=== PATIENT | female | born 1950 | race Caucasian/White ===

== ENCOUNTER 2022-03-09 14:32 | Outpatient (REF) | payer OTHER, SELFPAY ==
--- NOTE | ~2022-03-09 | MR_ITS ---
EXAMINATION: MR KNEE WITHOUT AND WITH CONTRAST, LEFT CLINICAL INFORMATION: Left knee pain, swelling, Smiley's cyst previously aspirated with purulent drainage. COMPARISON: Radiographs and MRI 12/01/2021. Ultrasound 11/15/2021. TECHNIQUE: MRI of the knee was performed before and after the intravenous administration of 8 mL Gadavist on a high-field scanner. FINDINGS: MENISCI: Medial meniscus: Undersurface tearing of the posterior horn extending to the junction with the meniscal body, similar to the previous study. Lateral meniscus: Ill-defined inner margin tearing of the meniscal body and inner margin truncation extending along the posterior horn also appear similar. LIGAMENTS: Cruciate: Intact. Surrounding enhancement/synovitis, similar to previous. Collateral: Intact. EXTENSOR MECHANISM: Intact. ARTICULAR CARTILAGE/BONE: Patellofemoral Compartment: Focal cartilage irregularity of the medial patellar facet. Medial Compartment: Peripheral cartilage thinning and mild subchondral marrow edema. Marrow edema of the tibia posteriorly has significantly decreased. Lateral Compartment: Cartilage thinning and areas of surface irregularity with a subchondral cyst of the tibia. Marrow edema at the junction of the tibial plateau and lateral tibial spine has decreased. JOINT FLUID AND BURSAE: Moderate joint effusion with enhancing synovitis and a large, complex Smiley's cyst with only peripheral enhancement overall measuring 5.1 x 3.5 x 6.6 cm has slightly increased in size. Complex fluid extending along the popliteus tendon sheath is no longer present. There is a new area of complex, loculated fluid/debris along the central trochlea, up to 8 mm in thickness. MR/MR knee LT wo/w con IMPRESSION: Large complex, peripherally enhancing Smiley's cyst collection has slightly increased in size and there is a new complex collection of fluid/debris extending along the central trochlea. Complex fluid previously demonstrated along the popliteus tendon sheath is no longer present. Patchy areas of reactive marrow edema involving the medial and lateral tibia have significantly decreased. Undersurface tearing of the medial meniscus posterior horn extending to the junction with the meniscal body, and horizontal tearing of the lateral meniscus body with inner margin truncation and tearing of the posterior horn appear similar to the previous study.
== END 2022-03-09 14:33 | disposition home or self-care (01) ==
LOC: HO.MRI 14:32
PROVIDERS: Visit Provider Physician Assistant
DX: Z87.39 Personal history of other diseases of the musculoskeletal system and connective tissue (principal)
CPT/HCPCS: 73723; A9585

== ENCOUNTER 2022-04-25 12:33 | Outpatient (REF) | payer OTHER, SELFPAY ==
--- NOTE | ~2022-04-25 | US_ITS ---
EXAMINATION: ULTRASOUND-GUIDED CYST ASPIRATION, KNEE, LEFT CLINICAL INFORMATION: Large left Smiley's cyst. COMPARISON: MR knee 03/09/2022. TECHNIQUE: Following explaining ultrasound-guided left Smiley's cyst drainage procedure, benefits and risks, a written consent was obtained. Patient was placed prone on ultrasound stretcher and preliminary ultrasound imaging was obtained. An optimal site was selected along the skin and marked on the skin. The site was cleaned and draped in usual sterile manner with 2% chlorhexidine solution. 1% lidocaine was injected at puncture site. Through a small skin incision a 4 Japanese catheter and a 5 Japanese Yueh catheter and an 18-gauge and 16-gauge regular needles were inserted several times into the Smiley's cyst however no fluid could be obtained due to it's gelatinous constitution. The exam was terminated. No fluid was collected. Sterile Band-Aid was applied at the puncture site. FINDINGS: On preliminary ultrasound imaging there is a well capsulated echogenic area in the popliteal fossa suggestive of a Smiley's cyst. Unsuccessful attempt to obtain any fluid from the Smiley's cyst in spite of several attempts with different needles and catheters. This is because of the thick gelatinous fluid. Open incision and enucleation may be required. US/US guided fine needle asp IMPRESSION: Unsuccessful attempt on ultrasound-guided drainage of Smiley's cyst. Recommend surgical correlation.
[2022-04-25] MEDS: Lidocaine HCl 1 % 20 ML VIAL SUBCUT (14:04)
== END 2022-04-25 12:34 | disposition home or self-care (01) ==
LOC: HO.US 12:33
PROVIDERS: Visit Provider Physician Assistant
DX: M71.22 Synovial cyst of popliteal space [Baker], left knee (principal)
CPT/HCPCS: 10005

== ENCOUNTER 2024-04-22 11:49 | Outpatient (AMB) | payer OTHER, SELFPAY ==
[2024-04-22 11:52] VITALS: BP 120/70; PULSE 71; O2SAT 92; BMI 33.0
--- NOTE | 2024-04-22 11:52 | HO.NEPHOV ---
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 Recent serum creatinine was 1.44 mg/dL. Few months ago creatinine was 1.33. Back in 2021 serum creatinine was 1.21. She has borderline diabetes mellitus. She was initially on metformin and she discontinue this medication. At present she is not on any antihypertensive medications and blood sugar has been within the normal range. History of hypertension overall blood pressure has been well controlled. She is on losartan 50 mg and spironolactone 50 mg. She has been on these medications for last few years and has been no change in the dosage recently. She does not take any NSAIDs or other nephrotoxic agents. Her oral intake has been adequate. History of nephrolithiasis. She has undergone lithotripsy and stent placement. She still has multiple renal stones. [facility] Medical History (Updated 04/22/24 @ 12:16 by Paul Alston MD) DONNA (obstructive sleep apnea) History of cervical cancer Primary osteoarthritis involving multiple joints Hirsutism Glaucoma Obesity Osteoporosis Microalbuminuria CKD (chronic kidney disease), stage III Diabetes Rheumatoid arthritis Hypertension Surgical History H/O lithotripsy H/O: hysterectomy S/P left knee arthroscopy Social History Current occupational status: retired Review of Systems Const Denies fever(s) and Denies weight loss Card Denies chest pain Resp Denies cough and Denies hemoptysis GI Denies abdominal pain, Denies diarrhea and Denies nausea Musc Denies back pain Neuro Denies focal weakness Physical Exam Vital Signs: Last Vital Signs Pulse 71 04/22/24 11:52 BP 120/70 04/22/24 11:52 Pulse Ox 92 04/22/24 11:52 Oxygen Delivery Method Room Air 04/22/24 11:52 BMI result Body Mass Index 33.0 Const General: comfortable; No acute distress Orientation/consciousness: patient oriented x3 Eyes General: appearance normal, both eyes and all related structures Visual Veloz: normal visual veloz by confrontation Neck Neck: Yes supple and Yes no JVD Resp Effort & Inspection: normal respiratory effort and respiratory effort not decreased Auscultation: rhonchi Cardio Palpation: no palpable S3 and no palpable S4 Heart sounds: no rubs GI Inspection: Yes normal to inspection Palpation (GI): Soft to palpation Percussion: Yes normal to percussion Auscultation: normal bowel sounds General: Yes no CVA tenderness Back/Spine/Pelvis Back: no CVA tenderness Skin General skin exam: no petechiae and no purpura Neuro General: patient oriented x3 and no focal motor deficits Extrem General: No clubbing and No edema Results Reviewed Results Reviewed: 02/22/2024 Serum creatinine 1.44 No significant proteinuria based on recent urine protein creatinine ratio Nephrology Results: No Data to Display Assessment & Plan Assessment & Plan (1) CKD (chronic kidney disease), stage III: Code(s): N18.30 - Chronic kidney disease, stage 3 unspecified Category: Medical (2) Bilateral nephrolithiasis: Code(s): N20.0 - Calculus of kidney Category: Medical Plan 73-year-old woman with stage IIIB chronic kidney disease. CKD 3 most likely due to underlying hypertensive nephrosclerosis. Other possibilities would include chronic nephrolithiasis.. Obstructive uropathy should be ruled out. Even though she has had mild diabetes mellitus for the last few years I do not think she has underlying diabetic nephropathy. She has no significant proteinuria. No reason to believe she has any active glomerular nephritis or interstitial disease at this time. Recommendation Renal ultrasonogram. Optimize blood pressure and maintain blood pressure less than 130/80. Avoid hypotension. Continue overt nephrotoxic agents including NSAIDs. Encouraged to increase p.o. fluid intake to maintain urine output of at least 2 L. Further workup will be based on the outcome of the baseline investigations as outlined Orders: Orders Parathyroid Hormone Intact Today N18.30 - Chronic kidney disease, stage 3 unspecified, N20.0 - Calculus of kidney US renal BI Today N18.30 - Chronic kidney disease, stage 3 unspecified, N20.0 - Calculus of kidney Basic Metabolic Panel Today N18.30 - Chronic kidney disease, stage 3 unspecified, N20.0 - Calculus of kidney Complete Blood Count Auto Diff Today N18.30 - Chronic kidney disease, stage 3 unspecified, N20.0 - Calculus of kidney Phosphorus Today N18.30 - Chronic kidney disease, stage 3 unspecified, N20.0 - Calculus of kidney Uric Acid Today N18.30 - Chronic kidney disease, stage 3 unspecified, N20.0 - Calculus of kidney Vitamin D 25-OH (D2 and D3) Today N18.30 - Chronic kidney disease, stage 3 unspecified, N20.0 - Calculus of kidney Coding Level of Care Code New Pt Level 4 (42670) Diagnoses CKD (chronic kidney disease), stage III N18.30 Bilateral nephrolithiasis N20.0
== END 2024-04-22 12:29 | disposition home or self-care (01) ==
PROVIDERS: PCP Family Medicine; Referring Provider Family Medicine; Visit Provider Internal Medicine Hypertension Specialist
DX: N18.30 Chronic kidney disease, stage 3 unspecified (principal); N20.0 Calculus of kidney
CPT/HCPCS: 99204

== ENCOUNTER → 2024-04-22 11:49 | Outpatient (BNVA) | payer OTHER, SELFPAY | PROVIDERS: PCP Family Medicine; Referring Provider Family Medicine; Visit Provider Internal Medicine Hypertension Specialist ==

== ENCOUNTER 2024-04-22 12:18 | Outpatient (REF) | payer OTHER, SELFPAY ==
[2024-04-22 17:40] LABS: MANUAL DIFF FLAG NO
[2024-04-22 17:47] LABS: Basophils Percent Auto 0.6 % (0-2); Eosinophils Absolute Auto 0.1 X10*3/uL (0.0-0.4); Eosinophils Percent Auto 1.3 % (0-4); Hematocrit 38.7 % (37.0-47.0); Hemoglobin 12.8 g/dl (12.0-16.0); Imm Gran Abs Auto 0.02 X10*3/uL (0.00-0.03); Imm Gran Pct Auto 0.4 % (0.0-0.4); Lymphocytes Absolute Auto 1.5 X10*3/uL (1.2-4.9); Lymphocytes Percent Auto 28.8 % (20-40); Mean Corpuscular HGB Conc 33.1 g/dl (31.0-35.0); Mean Corpuscular Hemoglobin 30.6 pg (27.0-33.0); Mean Corpuscular Volume 92.6 fL (80.0-98.0); Mean Platelet Volume 10.3 fL (9.4-12.3); Monocytes Absolute Auto 0.5 X10*3/uL (0.1-1.2); Monocytes Percent Auto 8.8 % (2-11); Neutrophils Absolute Auto 3.2 x10*3/uL (2.0-8.3); Neutrophils Percent Auto 60.1 % (45-73); Platelet Count 260 X10*3/uL (160-400); Red Blood Count 4.18 X10*6/uL (4.20-5.50); Red Cell Distribution Width 13.4 % (11.0-16.0); White Blood Count 5.4 X10*3/uL (4.8-10.8)
[2024-04-22 18:05] LABS: Anion Gap 12 (12-20); Blood Urea Nitrogen 34 mg/dL (9-16); Carbon Dioxide 26 mmol/L (22-29); Chloride 103 mmol/L (96-108); Estimated Glomerular Filt Rate 35; Glucose Random 108 mg/dL (60-115); Phosphorus 3.6 mg/dL (2.7-4.5); Potassium 4.2 mmol/L (3.3-5.1); Sodium 137 mmol/L (135-145); Uric Acid 5.8 mg/dL (2.4-5.7)
[2024-04-22 18:24] LABS: Parathyroid Hormone Intact 95.5 pg/mL (8.7-77.1)
[2024-04-27 16:48] LABS: Vitamin D 25-OH, D2 <4 ng/mL; Vitamin D 25-OH, D3 47 ng/mL; Vitamin D 25-OH, Total 47 ng/mL (30-100)
== END 2024-04-22 12:19 | disposition home or self-care (01) ==
LOC: HO.HKASLDS 12:18
PROVIDERS: Visit Provider Internal Medicine Hypertension Specialist
DX: N18.30 Chronic kidney disease, stage 3 unspecified (principal); N20.0 Calculus of kidney
CPT/HCPCS: 36415; 80048; 82306; 83970; 84100; 84550; 85025

== ENCOUNTER 2024-05-04 13:34 | Outpatient (REF) | payer OTHER, SELFPAY ==
--- NOTE | ~2024-05-04 | US_ITS ---
EXAMINATION: US RETROPERITONEAL LIMITED (RENAL ONLY) CLINICAL INFORMATION: Chronic kidney disease, stage 3 unspecified. COMPARISON: None available. TECHNIQUE: Real-time imaging of the kidneys. FINDINGS: RIGHT KIDNEY: 8.6 x 5.1 x 5.1 cm (SAG x AP x TRV). The kidney is small with increased cortical echogenicity. No calculi or focal parenchymal lesions. A benign mid renal 0.8 cm Bosniak class I cyst is noted which requires no additional imaging or followup. No solid renal masses are seen. No hydronephrosis. LEFT KIDNEY: 9.3 x 5.2 x 3.7 cm (SAG x AP x TRV). The kidney is slightly small with increased echogenicity. Renal cortical thickness is normal. No focal parenchymal lesions. A mid renal 0.4 cm echogenic focus is seen along with twinkle artifact consistent with a nonobstructing calculus. No hydronephrosis. US/US renal BI IMPRESSION: 1. Small echogenic kidneys consistent with medical renal disease. 2. Nonobstructing left renal calculus. Electronically signed by: Isaiah Larkin MD 06/19/2024 12:55 PM [facility]
== END 2024-05-04 13:35 | disposition home or self-care (01) ==
LOC: HO.US 13:34
PROVIDERS: PCP Family Medicine; Visit Provider Internal Medicine Hypertension Specialist
DX: N18.30 Chronic kidney disease, stage 3 unspecified (principal); N20.0 Calculus of kidney
CPT/HCPCS: 76775

== ENCOUNTER 2024-08-26 09:39 | Outpatient (AMB) | payer OTHER, SELFPAY ==
[2024-08-26 09:41] VITALS: BP 138/70; PULSE 84; O2SAT 94; BMI 33.3
--- NOTE | 2024-08-26 09:41 | HO.NEPHOV_ITS ---
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 Recent serum creatinine was 1.44 mg/dL. Few months ago creatinine was 1.33. Back in 2021 serum creatinine was 1.21. She has borderline diabetes mellitus. She was initially on metformin and she discontinue this medication. At present she is not on any antihypertensive medications and blood sugar has been within the normal range. History of hypertension overall blood pressure has been well controlled. She is on losartan 50 mg and spironolactone 50 mg. She has been on these medications for last few years and has been no change in the dosage recently. She does not take any NSAIDs or other nephrotoxic agents. Her oral intake has been adequate. History of nephrolithiasis. She has undergone lithotripsy and stent placement. She still has multiple renal stones. RA: On Rinvoq BEing followed by [facility] Will check urien studies [facility] Medical History (Updated 04/22/24 @ 12:16 by Paul Alston MD) DONNA (obstructive sleep apnea) History of cervical cancer Primary osteoarthritis involving multiple joints Hirsutism Glaucoma Obesity Osteoporosis Microalbuminuria CKD (chronic kidney disease), stage III Diabetes Rheumatoid arthritis Hypertension Surgical History H/O lithotripsy H/O: hysterectomy S/P left knee arthroscopy Social History Current occupational status: retired Review of Systems Const Denies fever(s) and Denies weight loss Card Denies chest pain Resp Denies cough and Denies hemoptysis GI Denies abdominal pain, Denies diarrhea and Denies nausea Musc Denies back pain Neuro Denies focal weakness Physical Exam Vital Signs: Last Vital Signs Pulse 84 08/26/24 09:41 BP 138/70 08/26/24 09:41 Pulse Ox 94 08/26/24 09:41 Oxygen Delivery Method Room Air 08/26/24 09:41 BMI result Body Mass Index 33.3 Comfortable Neck supple no JVD. Lungs entry equal no rales. Heart S1-S2 heard no gallop or rub. Abdomen soft nontender. Neuro alert awake oriented. No asterixis. Extremities no edema. Results Reviewed Nephrology Results: Hgb 12.8 g/dl (12.0-16.0) 04/22/24 WBC 5.4 X10*3/uL (4.8-10.8) 04/22/24 Plt Count 260 X10*3/uL (160-400) 04/22/24 Sodium 137 mmol/L (135-145) 04/22/24 Potassium 4.2 mmol/L (3.3-5.1) 04/22/24 Chloride 103 mmol/L (96-108) 04/22/24 Carbon Dioxide 26 mmol/L (22-29) 04/22/24 BUN 34 mg/dL (9-16) H 04/22/24 Creatinine 1.46 mg/dL (0.5-1.4) H 04/22/24 Calcium 10.0 mg/dL (8.4-10.2) 04/22/24 Phosphorus 3.6 mg/dL (2.7-4.5) 04/22/24 PTH Intact 95.5 pg/mL (8.7-77.1) H 04/22/24 Renal US 05/04/24 Assessment & Plan Assessment & Plan (1) CKD (chronic kidney disease), stage III: Code(s): N18.30 - Chronic kidney disease, stage 3 unspecified Category: Medical (2) Bilateral nephrolithiasis: Code(s): N20.0 - Calculus of kidney Category: Medical Plan 73-year-old woman with stage IIIB chronic kidney disease. CKD 3 most likely due to underlying hypertensive nephrosclerosis. Other possibilities would include chronic nephrolithiasis.. Obstructive uropathy should be ruled out. Even though she has had mild diabetes mellitus for the last few years I do not think she has underlying diabetic nephropathy. She has no significant proteinuria. No reason to believe she has any active glomerular nephritis or interstitial disease at this time. Recommendation Renal ultrasonogram. Optimize blood pressure and maintain blood pressure less than 130/80. Avoid hypotension. Continue overt nephrotoxic agents including NSAIDs. Encouraged to increase p.o. fluid intake to maintain urine output of at least 2 L. Further workup will be based on the outcome of the baseline investigations as outlined Orders: Orders Basic Metabolic Panel Today N18.30 - Chronic kidney disease, stage 3 unspecified, N20.0 - Calculus of kidney Sodium Urine Random 2 Weeks N18.30 - Chronic kidney disease, stage 3 unspecified, N20.0 - Calculus of kidney Total Protein Urine Random Today N18.30 - Chronic kidney disease, stage 3 unspecified, N20.0 - Calculus of kidney UA and rflx microscopic Today N18.30 - Chronic kidney disease, stage 3 unspecified, N20.0 - Calculus of kidney Creatinine Urine Today N18.30 - Chronic kidney disease, stage 3 unspecified, N20.0 - Calculus of kidney Coding Level of Care Code Est Pt Level 4 (79605) Diagnoses CKD (chronic kidney disease), stage III N18.30 Bilateral nephrolithiasis N20.0
--- OUTSIDE RECORDS SUMMARY | 2024-08-26 10:22 | XMS_ITS | Encounter Summary ---
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 Name Role Phone Arash Coelho MD Primary Care Pr ovider Reason for Visit * Reason Onset Date Comments injection denied 07/16/2024 Encounter Details Date Type Department Care Team (Late st Contact Info) Description 07/16/2024 Telephone [facility] [place] [facility] [place] [address] [place] [phone] Uday Hardin MD [address] [place] [phone] injection denied Social History Tobacco Use Types Packs/Day Years Used Date Smoking Tobacco: Former Cigarettes 2 33 0 08/05/1964 - 08/05/1997 Smokeless Tobacco: Never Sex and Gender Information Value Date Recorded Sex Assigned at Not on file Gender Identity Not on file Sexual Orientation Not on file documented as of this encounter Progress Notes * Kandice Frazier MA - 08/18/2024 11:17 AM EST Spoke with patient she gave me two phone num for peer to peer RX and [place]urances for Prolia. * Elisabet Wilkes - 08/12/2024 11:51 AM EST Pt returning call to [facility]. Please call pt [phone] * Kandice Frazier MA - 08/12/2024 9:35 AM EST Called patient left her a message to return our call it about her prolia her insurance is not covering but will try to do peer to peer. * Uday Hardin MD - 08/12/2024 7:23 AM EST Can we do peer to peer? * Kandice Frazier MA - 07/17/2024 11:[address]Rana Ferreira from [facility] would like to know what is the next step? * Kate Summers - 07/16/2024 2:41 PM EST Hanna from [facility] is still waiting for a response from Dr Hardin's office regarding the denial of patient's Prolia as it is getting to the end of the year. She is asking for anything, call back or fax please. documented in this encounter Plan of Treatment Upcoming Encounters Date Type Department Care Team (Late st Contact Info) Description 2024 8:30 AM EST Office Visit Adult Medicine [address] [phone] Arash Coelho MD [address] [place] [id number] 11/04/2024 9:00 AM EDT Office Visit Endocrinology - [address] [phone] Uday Hardin MD [address] [place] [phone] documented as of this encounter Visit Diagnoses Not on filedocumented in this encounter Care Teams Rail Maintenance Worker Relationship Specialty Start Date End Date Arash Coelho MD PCP - General 10/01/22 documented as of this encounter
--- OUTSIDE RECORDS SUMMARY | 2024-08-26 10:22 | XMS_ITS | Clinical Summary ---
Author Organization [facility] [address] [place] [address] Address [address] [place] [address] Phone Care Team Providers Care Soa Integration Architect Name Role Phone Arash Coelho MD Primary Care Pr ovider Allergies Active Allergy Reactions Criticality Noted Date Comments Morphine Nausea And Vomiting 07/25/2009 Medications Medication Sig Dispensed Refills Start Date End Date Status spironolactone (ALDACTONE) 50 mg tablet Take 1 tablet (50 mg total) by mouth 1 (one) time each day. 02/21/2024 Active timolol (TIMOPTIC) 0.25 % ophthalmic solution Place 1 Drop into both eyes daily. 09/28/2022 Active upadacitinib (Rinvoq) 15 mg tablet extended release 24 hr Take 15 mg by mouth daily. Active losartan (COZAAR) 50 mg tablet Take 1 tablet (50 mg total) by mouth 1 (one) time each day. 11/27/2023 Active denosumab (Prolia) 60 mg/mL syringe syringe Inject 1 mL (60 mg total) under the skin 1 (one) time. Active Active Problems Problem Noted Date Diagnosed Date Hypertension 05/14/2024 Nephrolithiasis 05/14/2024 DONNA (obstructive sleep apnea) 05/14/2024 Overview (05/14/2024): UNTREATED (10/03/23) Rheumatoid arthritis 05/14/2024 Type II diabetes mellitus with renal manifestati ons 05/14/2024 CKD (chronic kidney disease) stage 3, GFR 30-59 ml/min 10/03/2023 Microalbuminuria 10/03/2023 Osteoporosis 02/06/2023 Obesity (BMI 30.0-34.9) 01/25/2023 Glaucoma of both eyes 10/24/2022 Hirsutism 11/27/2018 Primary osteoarthritis involving multiple joints 11/06/2018 Hyperlipidemia 10/24/2017 Encounters Date Type Department Care Team Description 07/16/2024 Telephone Endocrinology - [address] [phone] Uday Hardin MD injection denied 06/24/2024 Telephone Endocrinology [address] [phone] Kandice Frazier MA 06/11/2024 Telephone Endocrinology [address] [phone] Uday Hardin MD 06/11/2024 Telephone Adult Medicine [place] - [address] [phone] Carey Johnson MA from Last 3 Months Immunizations Name Administration Dates Next Due Moderna SARS-CoV-2 COVID-19, mRNA, LNP-S, preservative free 11/11/2020,10/13/2020 Td Tetanus diptheria (Tdvax) 7yo and older 04/04 Surgical History Surgery Date Site/Laterality Comments HYSTERECTOMY 1986 PROCEDURE: HISTORICAL HYSTERECTOMY; COMMENT: hx cervical CA LITHOTRIPSY PROCEDURE: HISTORICAL LITHOTRIPSY; COMMENT: 1998, 2012, 2018 ABDOMINAL SURGERY 2008 PROCEDURE: HISTORICAL ABDOMINAL SURGERY; COMMENT: For diverticulitis OTHER SURGICAL HISTORY 2011 PROCEDURE: MI COLECTOMY PARTIAL W/ANASTOMOSIS OTHER SURGICAL HISTORY 05/20/2019 PROCEDURE: ---- OTHER ----; COMMENT: Cathi. Ureteral stent placement LITHOTRIPSY 06/2019 Left PROCEDURE: HISTORICAL LITHOTRIPSY; COMMENT: [facility]ason LITHOTRIPSY 07/2019 Right PROCEDURE: HISTORICAL LITHOTRIPSY; COMMENT: [place] Medical History Medical History Date Comments Hypertension DX:Hypertension Rheumatoid arthritis (CMS/HCC) D X:Rheumatoid arthritis (HCC); COMMENT: Ez DONNA (obstructive sleep apnea) DX :DONNA (obstructive sleep apnea) Nephrolithiasis DX:Nephrolithias is; COMMENT: Jones Hyperlipidemia 10/24/2017 DX:Hyperlipidemi a Diabetes mellitus type 2, uncomplicated (CMS/HCC) DX:Diabetes mellitus type 2, uncomplicated (HCC) History of cervical cancer DX:Hi story of cervical cancer; COMMENT: s/p hysterectomy Primary osteoarthritis invol ving multiple joints 11/06/2018 DX:Primary osteoarthritis in volving multiple joints History of diverticulitis of colon DX:History of diverticulitis of colon Osteopenia DX:Osteopenia Family History Medical History Relation Name Comments Other: CAD Father MS, at age 59 Stroke Maternal Grandmother Hypertension Mother Other: Substance abuse Sister Relation Name Status Comments Father Maternal Grandmother Mother Sister Social History Tobacco Use Types Packs/Day Years Used Date Smoking Tobacco: Former Cigarettes 2 33 0 08/05/1964 - 08/05/1997 Smokeless Tobacco: Never Sex and Gender Information Value Date Recorded Sex Assigned at Not on file Gender Identity Not on file Sexual Orientation Not on file Obstetrics History Last Filed Vital Signs Vital Sign Reading Time Taken Comments Blood Pressure 103/66 05/06/2024 8:25 AM EDT Pulse 79 05/06/2024 8:25 AM EDT Temperature - - Respiratory Rate - - Oxygen Saturation - - Inhaled Oxygen Concentration - - Weight 86.6 kg (191 lb) 05/06/2024 8:25 AM EDT Height 162.6 cm (5' 4 ) 05/06/2024 8:25 AM EDT Body Mass Index 32.79 05/06/2024 8:25 AM EDT Plan of Treatment Upcoming Encounters Date Type Department Care Team (Late st Contact Info) Description 2024 8:30 AM EST Office Visit Adult Medicine [address] [phone] Arash Coelho MD [address] [place] [phone] 11/04/2024 9:00 AM EDT Office Visit [address] [place] [phone] Uday Hardin MD [address] [place] [phone] Health Maintenance Due Date Last Done Comments Pneumococcal Vaccine: 65+ Years (1 of 2 - PCV) 1957 Zoster Vaccines (1 of 2) 1970 RSV Immunization Patients 60 + Years Old (1 - Risk 60-74 years 1-dose series) 2011 DTaP,Tdap,and Td Vaccines (2 - Td or Tdap) 04/04/2016 04/04/2006 Depression Screening 07/13/2022 Falls Risk Assessment 07/13/2022 Social Influencers of Health Screening 07/13/2022 COVID-19 Vaccine (4 - 2023-2 5 season) 2024 07/05/2021, 11/11/2020, 10/13/2020 Influenza Vaccine (#1) 2024 Diabetes: Blood Sugar Contro l Test (HGBA1C) 08/23/2024 02/21/2024, 02/21/2024 Diabetes: Annual Retina Eye Exam 09/29/2024 09/29/2023 Breast Cancer Screening 01/28/2025 01/28/2023 Diabetes: Annual Urine Albumin-Creatinine Ratio (uACR) 02/13/2025 02/14/2024 Diabetes: Annual GFR (Glomerular Filtration Rate) 02/13/2025 02/14/2024, 02/14/2024 Hypertension/CHF/CAD Annual BMP Blood Test 02/13/2025 02/14/2024, 02/14/2024 Diabetes: Annual Foot Exam 02/20/2025 02/21/2024 Colorectal Cancer Screening: Colonoscopy 07/04/2027 07/04/2017 Cholesterol Screening (Lipid Panel) 02/13/2029 02/14/2024, 02/14/2024 Osteoporosis Screening (Bone Density Screening) 01/28/2033 01/28/2023, 10/19/2019 Hepatitis C Screening Completed 01/04/2023 HIB Vaccines Aged Out No longer eligi ble based on patient's age to complete this topic HPV Vaccines Aged Out No longer eligi ble based on patient's age to complete this topic Hepatitis A Vaccines Aged Out No long er eligible based on patient's age to complete this topic Hepatitis B Vaccines Aged Out No long er eligible based on patient's age to complete this topic IPV Vaccines Aged Out No longer eligi ble based on patient's age to complete this topic MMR Vaccines Aged Out No longer eligi ble based on patient's age to complete this topic Meningococcal ACWY Vaccine Aged Out N o longer eligible based on patient's age to complete this topic RSV Immunization Patients Under 20 months Aged Out No longer eligible b ased on patient's age to complete this topic Varicella Vaccines Aged Out No longer eligible based on patient's age to complete this topic Procedures Procedure Name Priority Date/Time Associated Diagnosis Comments HEMOGLOBIN A1C Routine 02/21/2024 DIABETES FOOT EXAM Routine 02/21/2024 URINE ALBUMIN CREATININE RATIO Routine 02/14/2024 ANNUAL BMP BLOOD TEST Routine 02/14/2024 LIPID PANEL Routine 02/14/2024 DIABETES EYE EXAM Routine 09/29/2023 [facility] SCREENING DIGITAL Routine 01/28/2023 5:16 PM EDT Encounter for screening mammogram for malignant neoplasm of breast [facility] DEXA AXIAL SKELETON Routine 01/28/2023 11:02 AM EDT Encounter for screening for osteoporosis HEPATITIS C SCREENING Routine 01/04/2023 COLONOSCOPY Routine 07/04/2017 from Last 3 Months or Most Recently Relevant to Health Maintenance Results * Diabetes Foot Exam (02/21/2024) Diabetes: Annual Foot Exam abstracted Historical Provider MD CORWIN Carvalho * (ABNORMAL) Hemoglobin A1c (02/21/2024) Hemoglobin A1C 7.3(A) 6.5 % Blood Venous blood specimen / Unknown Historical Provider LAB BLOOD ORDERAB LES * Urine Albumin Creatinine Ratio (02/14/2024) [facility] Urine Albumin Creatinine Ratio abstracted Historical Provider [facility] * Annual BMP Blood Test (02/14/2024) [facility] Annual BMP Blood Test abstracted Historical Provider [facility] * (ABNORMAL) Lipid panel (02/14/2024) [facility] LDL/HDL Ratio 4 0 - 4 Triglycerides 64 0 - 150 mg/dL Cholesterol 227(A) 0 - 200 mg/dL HDL 57 40 mg/dL LDL Cholesterol 158(A) 0 - 100 mg/dL Blood Venous blood specimen / Unknown Historical Provider [place] LAB BLOOD ORDERAB LES * Diabetes Eye Exam (09/29/2023) [facility] Diabetes: Annual Retina Eye Exam abstracted Historical Provider [facility] * JARRET SCREENING DIGITAL (01/28/2023 5:16 PM EDT) Anatomical Region Laterality Modality Mammography 01/28/2023 10:0 1 AM EDT Narrative 01/28/2023 5:16 PM EDT Diagnostic Imaging Department [address] [place] [address] Patient: ??NIA MÁRQUEZ ?/Age/Sex: 1950 - 72 - F Unit#: ??[id number] ? Location/Status: ??SPDIMAM/REG CLI ? Mnemonic/Ordering Site: ??DIGSC/SPMAM Ordering Physician: ??ARASH COELHO Jarret Screening Digital - 01/28/23 - 1103 Report Status:Signed EXAM: Jarret Screening Digital EXAM DATE AND TIME: 01/28/2023 11:04 AM HISTORY: ??Screening. Sister had breast carcinoma at age 67. COMPARISON: ??01/17/17, 12/01/09, 11/19/08 TECHNIQUE: CC and MLO views of both breasts were obtained using full field digital mammography. Bilateral digital breast tomosynthesis was performed in the MLO projection. Computer aided detection with [employer] 7.2-H and Boxed 3D 3.1 was employed. TISSUE DENSITY: a. The breasts are almost entirely fatty. FINDINGS: Two subcentimeter focal asymmetries are seen in the inferior left breast appearing new from the previous exams. MLO spot compression tomosynthesis views and full CC and lateral tomosynthesis views are recommended for further assessment. A 7 mm circumscribed nodule in the upper outer right breast is unchanged dating back to the initial, 2008 study, considered benign. No grouped microcalcifications or areas of architectural distortion are seen. The skin and vascularity are unremarkable. IMPRESSION: 1. Left breast asymmetries, for which additional views are recommended. The patient will be called back. 2. Stable mammographic appearance of the right breast. No evidence of malignancy is seen. BI-RADS: ??Category 0: Incomplete - Need Additional Imaging Evaluation RECOMMENDATION(S): 1: Special mammographic view(s) needed LEFT 22020, [address] 3340F, 7025F Dictating Physician: ??MAIRA BOYLE MD Electronically Signed by: ??MAIRA BOYLE MD Dic Date/Time: ??01/28/23 1614 Sign date/Time: ??01/28/23 1716 Procedure Note Maira Boyle MD - 09/10/2023 Diagnostic Imaging Department [address] [place] [id number] Patient: YULISANIAO.B./Age/Sex: 1950 72 - F Unit#: [id number] [facility] CLI Mnemonic/Ordering Site: [facility] Ordering Physician: ARASH COELHO [facility] Screening Digital - 01/28/23 - 1103 Report Status:Signed EXAM: [facility] Screening Digital EXAM DATE AND TIME: 01/28/2023 11:04 AM HISTORY: Screening. Sister had breast carcinoma at age 67. COMPARISON: 01/17/17, 12/01/09, 11/19/08 TECHNIQUE: CC and MLO views of both breasts were obtained using fullfield digital mammography. Bilateral digital breast tomosynthesis was performedin the MLO projection. Computer aided detection with [employer] 7.2-H andBoxed 3D 3.1 was employed. TISSUE DENSITY: a. The breasts are almost entirely fatty. FINDINGS: Two subcentimeter focal asymmetries are seen in the inferior left breast appearing new from the previous exams. MLO spot compression tomosynthesisviews and full CC and lateral tomosynthesis views are recommended for further assessment. A 7 mm circumscribed nodule in the upper outer right breast is unchangeddating back to the initial, 2008 study, considered benign. No grouped microcalcifications or areas of architectural distortion are seen. Theskin and vascularity are unremarkable. IMPRESSION: 1. Left breast asymmetries, for which additional views are recommended.The patient will be called back. 2. Stable mammographic appearance of the right breast. No evidence of malignancy is seen. BI-RADS: Category 0: Incomplete - Need Additional Imaging Evaluation RECOMMENDATION(S): 1: Special mammographic view(s) needed LEFT [address]0131, 23083 3340F, 7025F Dictating Physician: MAIRA BOYLE MD Electronically Signed by: MAIRA BOYLE MD Dic Date/Time: 01/28/231713 Sign date/Time: 01/28/231715 Arash Coelho MD IMG BI P ROCEDURES * JARRET DEXA AXIAL SKELETON (01/28/2023 11:02 AM EDT) Anatomical Region Laterality Modality Mammography 01/28/2023 10:0 3 AM EDT Narrative 01/28/2023 11:02 AM EDT Diagnostic Imaging Department [address] [place] [address] Patient: ??NIA MÁRQUEZ ?/Age/Sex: 1950 - 72 - F Unit#: ??[id number] ? Location/Status: ??SPDIMAM/REG CLI ? Mnemonic/Ordering Site: ??MAMDEXAAX/SPMAM Ordering Physician: ??ARASH COELHO Jarret Dexa Axial Skeleton - 01/28/23 - 3899 Report Status:Signed HISTORY: ??The patient is a 72-year-old postmenopausal female with clinical concern for metabolic bone disease. FINDINGS: ??Dual energy x-ray absorptiometry of the lumbar spine and femurs is performed. The mean bone mineral density at L1-2 is 0.964 gm/cm2 which is 83% of that of young normals and 93% of that of age matched controls. This yields a T- score of -1.7 and a Z-score of -0.6 which is diagnostic of osteopenia. The mean bone mineral density of the femurs bilaterally is 0.768 gm/cm2 which is 76% of that of young normals and 88% of that of age matched controls. ??This yields a T-score of -1.9 and a Z-score of -0.8 which is diagnostic of osteopenia. ??However, the T-score of the right femoral neck is -2.5 and that of the left femoral neck is -2.9 which is diagnostic of osteoporosis. IMPRESSION: 1. Osteoporosis. ??There has been an increase of 9.5% in bone mineral density in the lumbar spine since the prior examination of 10/19/2019. ??There has been a decrease of 0.9% in bone mineral density in the right femur and a decrease of 4.3% in bone mineral density in the left femur. 2. FRAX analysis yields a 10-year probability of major osteoporotic fracture of 20.0% and a 10-year probability of hip fracture of 7.8%. Code 69986 Dictating Physician: ??LARRY ALCOCER MD Electronically Signed by: ??LARRY ALCOCER MD Dic Date/Time: ??01/28/23 1101 Sign date/Time: ??01/28/23 1102 Procedure Note Larry Alcocer MD - 09/10/2023 Diagnostic Imaging Department [address] [place] [address] Patient: NIA MÁRQUEZ /Age/Sex: 1950 - 72 - F Unit#: [id number] Location/Status: SPDIMAM/REG CLI Mnemonic/Ordering Site: MAMDEXAAX/SPMAM Ordering Physician: ARASH COELHO Jarret Dexa Axial Skeleton - 01/28/23 - 1059 Report Status:Signed HISTORY: The patient is a 72-year-old postmenopausal female withclinical concern for metabolic bone disease. FINDINGS: Dual energy x-ray absorptiometry of the lumbar spine and femursis performed. The mean bone mineral density at L1-2 is 0.964 gm/cm2 which is83% of that of young normals and 93% of that of age matched controls. This yieldsa T- score of -1.7 and a Z-score of -0.6 which is diagnostic of osteopenia. The mean bone mineral density of the femurs bilaterally is 0.768 gm/li9adzbz is 76% of that of young normals and 88% of that of age matched controls.This yields a T-score of -1.9 and a Z-score of -0.8 which is diagnostic of osteopenia. However, the T-score of the right femoral neck is -2.5 andthat of the left femoral neck is -2.9 which is diagnostic of osteoporosis. IMPRESSION: 1. Osteoporosis. There has been an increase of 9.5% in bone mineraldensity in the lumbar spine since the prior examination of 10/19/2019. There has jose decrease of 0.9% in bone mineral density in the right femur and a decreaseof 4.3% in bone mineral density in the left femur. 2. FRAX analysis yields a 10-year probability of major osteoporoticfracture of 20.0% and a 10-year probability of hip fracture of 7.8%. Code 82185 Dictating Physician: LARRY ALCOCER MD Electronically Signed by: LARRY ALCOCER MD Dic Date/Time: 01/28/23 1101 Sign date/Time: 01/28/23 1102 Arash Coelho MD IM BI P ROCEDURES * Hepatitis C Screening (01/04/2023) [facility] Hepatitis C Screening abstracted Historical Provider MD CORWIN Carvalho * Colonoscopy (07/04/2017) [facility] Colonoscopy no interpreta tion,abstr acted Anatomical Region Laterality Modality Other Historical Provider MD CORWIN Carvalho from Last 3 Months or Most Recently Relevant to Health Maintenance Care Teams Soa Integration Architect Relationship Specialty Start Date End Date Arash Coelho MD PCP - General 10/01/22
--- OUTSIDE RECORDS SUMMARY | 2024-08-26 10:22 | XMS_ITS | Clinical Summary ---
Author Organization [facility] Address [address] [place] [address] Care Team Providers Care Chart Computer Name Role Phone Naz Marquis Primary Care Provider Allergies Active Allergy Reactions Criticality Noted Date Comments Morphine Nausea And Vomiting 07/25/2009 Medications Medication Sig Dispensed Refills Start Date End Date Status losartan (COZAAR) tablet 50 mg Take 1 tablet by mouth daily. 0 08/29/2021 Active metFORMIN (GLUCOPHAGE) tablet 500 mg Take 500 mg by mouth 2 times daily (with meals). 0 08/21/2021 Active spironolactone (ALDACTONE) tablet 50 mg Take 1 tablet by mouth daily. 0 08/21/2021 Active azaTHIOprine (IMURAN) 50 MG tablet 0 11/24/2021 Active Active Problems No known active problems Social History Tobacco Use Types Packs/Day Years Used Date Smoking Tobacco: Never Assessed Sex and Gender Information Value Date Recorded Sex Assigned at Not on file Gender Identity Not on file Sexual Orientation Not on file Job Start Date Occupation Industry Not on file Not on file Not on file Last Filed Vital Signs Vital Sign Reading Time Taken Comments Blood Pressure - - Pulse - - Temperature - - Respiratory Rate - - Oxygen Saturation - - Inhaled Oxygen Concentration - - Weight 82.6 kg (182 lb) 11/28/2021 1:10 PM EDT Height 162.6 cm (5' 4 ) 11/28/2021 1:10 PM EDT Body Mass Index 31.24 11/28/2021 1:10 PM EDT Plan of Treatment Health Maintenance Due Date Last Done Comments Hepatitis C Screening 1950 Pneumococcal Vaccine (1 of 2 - PCV) 1957 Depression Screening 1963 BMI Counseling 1969 Preventative Health Evaluation 1969 DTap / Tdap / Td (1 - Tdap) 1970 Shingrix-Zoster Vaccine (1 o f 2) 1970 Colon Cancer Screening (Colonoscopy) 1996 Breast Cancer Screening (Mammogram) 2001 RSV Adult > 60+ Yrs or (1 - Risk 60-74 years 1-dose series) 2011 Fall Risk Assessment 2016 Osteoporosis Screening (DEXA Scan) 2016 COVID-19 Vaccine (3 - Modern a risk series) 12/09/2020 11/11/2020, 10/13/2020 Influenza Vaccine (#1) 2024 Hepatitis B Vaccines Aged Out No long er eligible based on patient's age to complete this topic RSV Ped < 20 months Aged Out No longe r eligible based on patient's age to complete this topic Care Teams Chart Computer Relationship Specialty Start Date End Date Naz Marquis [address] [place] [id number] PCP - General Internal Medicine 11/24/21
== END 2024-08-26 10:07 | disposition home or self-care (01) ==
PROVIDERS: PCP Family Medicine; Visit Provider Internal Medicine Hypertension Specialist
DX: N18.30 Chronic kidney disease, stage 3 unspecified (principal); N20.0 Calculus of kidney
CPT/HCPCS: 99214

== ENCOUNTER 2024-08-26 09:39 | Outpatient (REF) | payer OTHER, SELFPAY ==
--- OUTSIDE RECORDS SUMMARY | 2024-08-26 10:50 | XMS_ITS | Clinical Summary ---
Author Organization [facility] [address] [place] [address] Address [address] [place] [address] Phone Care Team Providers Care Electrical Software Engineer Name Role Phone Arash Coelho MD Primary [...] Care Team Description 07/16/2024 Telephone Endocrinology - [address] [phone] Uday Hardin MD injection denied 06/24/2024 Telephone Endocrinology [address] [phone] Kandice Frazier MA 06/11/2024 Telephone Endocrinology [address] [phone] Uday Hardin MD 06/11/2024 Telephone Adult Medicine [place] - [address] [phone] Carey Johnson MA from Last 3 Months [...] History Relation Name Comments Other: CAD Father [place], at age 59 Stroke Maternal Grandmother Hypertension [...] 8:30 AM EST Office Visit Adult Medicine [address] [phone] Arash Coelho MD [address] [place] [address] 11/04/2024 9:00 AM EDT Office Visit [address] [place] [phone] Uday Hardin MD [address] [place] [address] Health Maintenance Due Date Last [...] Routine 02/14/2024 DIABETES EYE EXAM Routine 09/29/2023 [facility] SCREENING DIGITAL Routine 01/28/2023 5:16 PM EDT Encounter for screening mammogram for malignant neoplasm of breast [facility] DEXA AXIAL SKELETON Routine 01/28/2023 11:02 AM [...] LES * Urine Albumin Creatinine Ratio (02/14/2024) [facility] Urine Albumin Creatinine Ratio abstracted Historical Provider [facility] * Annual BMP Blood Test (02/14/2024) [facility] Annual BMP Blood Test abstracted Historical Provider [facility] E * (ABNORMAL) Lipid panel (02/14/2024) [facility] LDL/HDL Ratio 4 0 - 4 Triglycerides 64 0 - 150 mg/dL Cholesterol 227(A) 0 - 200 mg/dL HDL 57 40 mg/dL LDL Cholesterol 158(A) 0 - 100 mg/dL Blood Venous blood specimen / Unknown Historical Provider [facility] * Diabetes Eye Exam (09/29/2023) [facility] Diabetes: Annual Retina Eye Exam abstracted Historical Provider [facility] E * JARRET SCREENING DIGITAL (01/28/2023 5:16 PM EDT) Anatomical Region Laterality Modality Mammography 01/28/2023 10:0 1 AM EDT Narrative 01/28/2023 5:[address] [facility] Diagnostic Imaging Department [address] [place] [address] Patient: ??NIA MÁRQUEZ ?/Age/Sex: 1950 - 72 - F Unit#: ??[id number] ? Location/Status: ??SPDIMAM/REG CLI ? Mnemonic/Ordering Site: [...] the MLO projection. Computer aided detection with SanFran[employer]O 7.2-H and [employer] Earth 3D 3.1 was employed. TISSUE DENSITY: a. [...] RECOMMENDATION(S): 1: Special mammographic view(s) needed LEFT 55004, 17275 3340F, 7025F Dictating Physician: ??MAIRA BOYLE MD Electronically Signed by: ??MAIRA BOYLE MD Dic Date/Time: ??01/28/23 2938 Sign date/Time: ??01/28/23 1716 Procedure Note Maira Boyle MD - 09/10/2023 [facility] Diagnostic Imaging Department [address] [place] [address] Patient: YULISANIAO.B./Age/Sex: 1950 72 - F Unit#: [id number] [facility]em[facility] Ordering Physician: ARASH COELHO [facility] Screening Digital - 01/28/23 - 1103 Report Status:Signed EXAM: [facility] Screening Digital EXAM DATE AND TIME: 01/28/2023 11:04 AM HISTORY: Screening. Sister had breast carcinoma at age 67. COMPARISON: 01/17/17, 12/01/09, 11/19/08 TECHNIQUE: CC and MLO views of both breasts were obtained using fullfield digital mammography. Bilateral digital breast tomosynthesis was performedin the MLO projection. Computer aided detection with [employer] 7.2-H andAcadem[employer] Earth 3D 3.1 was employed. TISSUE DENSITY: a. [...] RECOMMENDATION(S): 1: Special mammographic view(s) needed LEFT 86731, 67334 3340F, 7025F Dictating Physician: MAIRA BOYLE MD Electronically Signed by: MAIRA BOYLE MD Dic Date/Time: 01/28/231713 Sign date/Time: 01/28/231715 Arash Coelho MD IMG BI P ROCEDURES * JARRET DEXA AXIAL SKELETON (01/28/2023 11:02 AM EDT) Anatomical Region Laterality Modality Mammography 01/28/2023 10:0 3 AM EDT Narrative 01/28/2023 11:[address] [facility] Diagnostic Imaging Department [address] [place] [address] Patient: ??NIA MÁRQUEZ ?/Age/Sex: 1950 - 72 - F Unit#: ??[id number] ? Location/Status: ??SPDIMAM/REG CLI ? Mnemonic/Ordering Site: ??MAMDEXAAX/SPMAM Ordering Physician: ??ARASH COELHO Jarret Dexa Axial Skeleton - 01/28/23 - 4509 Report Status:Signed HISTORY: ??The patient is a [...] probability of hip fracture of 7.8%. Code 63600 Dictating Physician: ??LARRY ALCOCER MD Electronically Signed by: ??LARRY ALCOCER MD Dic Date/Time: ??01/28/23 1101 Sign date/Time: ??01/28/23 1102 Procedure Note Larry Alcocer MD - 09/10/2023 [facility] Diagnostic Imaging Department [address] [place] [address] Patient: NIA MÁRQUEZ /Age/Sex: 1950 - 72 - F Unit#: [id number] Location/Status: SPDIMAM/REG CLI Mnemonic/Ordering Site: MAMDEXAAX/SPMAM Ordering [...] density of the femurs bilaterally is 0.768 gm/id1ymiyc is 76% of that of young normals [...] probability of hip fracture of 7.8%. Code 95222 Dictating Physician: LARRY ALCOCER MD Electronically Signed by: LARRY ALCOCER MD Dic Date/Time: 01/28/23 1101 Sign date/Time: 01/28/23 1102 Arash Coelho MD IM BI P ROCEDURES * Hepatitis C Screening (01/04/2023) [facility] Hepatitis C Screening abstracted Historical Provider MD CORWIN Carvalho * Colonoscopy (07/04/2017) [facility] Colonoscopy no interpreta tion,abstr acted Anatomical Region Laterality Modality Other Historical Provider MD CORWIN Carvalho from Last 3 Months or Most Recently Relevant to Health Maintenance Care Teams Electrical Software Engineer Relationship Specialty Start Date End Date Arash Coelho MD PCP - General 10/01/22
--- OUTSIDE RECORDS SUMMARY | 2024-08-26 10:50 | XMS_ITS | Clinical Summary ---
Author Organization [facility] Address [address] [place] [address] Care Team Providers Care Multimedia Authoring Specialist Name Role Phone Naz Marquis Primary Care [...] age to complete this topic Care Teams Multimedia Authoring Specialist Relationship Specialty Start Date End Date Naz Marquis [address] [place] [phone] PCP - General Internal Medicine 11/24/21
--- OUTSIDE RECORDS SUMMARY | 2024-08-26 10:50 | XMS_ITS | Encounter Summary ---
Author Organization [facility] Address [address] [place] [address] Care Team Providers Care Assistant Plant Control Operator Name Role Phone Arash Coelho MD Primary Care Pr ovider Reason for Visit * Reason Onset Date Comments injection denied 07/16/2024 Encounter Details Date Type Department Care Team (Late st Contact Info) Description 07/16/2024 Telephone [facility] [address] [place] [phone] Uday Hardin MD [address] [place] [address] injection denied Social History Tobacco [...] num for peer to peer RX and [place] insurances for Prolia. * Elisabet Wilkes - 08/12/2024 11:51 AM EST Pt returning call to [facility]. Please call pt [phone] * Kandice Frazier MA - 08/12/2024 9:35 AM EST Called patient left her a message to return our call it about her prolia her insurance is not covering but will try to do peer to peer. * Uday Hardin MD - 08/12/2024 7:23 AM EST Can we do peer to peer? * Kandice Frazier MA - 07/17/2024 11:[address]Rana Ferreira from [facility] would like to know what is the next step? * Kate Summers - 07/16/2024 2:41 PM EST Hanna from [facility] is still waiting for a response from Dr Hardin's office regarding the denial of patient's Prolia as it is getting to the end of the year. She is asking for anything, call back or fax please. documented in this encounter Plan of Treatment Upcoming Encounters Date Type Department Care Team (Late st Contact Info) Description 2024 8:30 AM EST Office Visit Adult Medicine [address] [phone] Arash Coelho MD [address] [place] [address] 11/04/2024 9:00 AM EDT Office Visit Endocrinology - [address] [phone] Uday Hardin MD [address] [place] [phone] documented as of this encounter Visit Diagnoses Not on filedocumented in this encounter Care Teams Assistant Plant Control Operator Relationship Specialty Start Date End Date Arash Coelho MD PCP - General 10/01/22 documented as of this encounter
[2024-08-26 17:59] LABS: Anion Gap 10 (12-20); Blood Urea Nitrogen 29 mg/dL (9-16); Calcium 10.2 mg/dL (8.4-10.2); Carbon Dioxide 28 mmol/L (22-29); Chloride 104 mmol/L (96-108); Estimated Glomerular Filt Rate 34; Glucose Random 188 mg/dL (60-115); Potassium 4.9 mmol/L (3.3-5.1); Sodium 137 mmol/L (135-145)
[2024-08-26 18:15] LABS: Appearance Urine Clear; Color Urine Yellow; Glucose Urine UA 100 mg/dL (Negative); Leukocyte Esterase Urine Negative (Negative); Nitrite Urine Negative (Negative); Urine Blood Negative (Negative); Urine Ketones Negative (Negative); Urine Protein Negative (Neg-Trace)
[2024-08-26 18:19] LABS: Creatinine Urine 33.33 mg/dL; Total Protein Urine Random < 7 mg/dL (<12)
== END 2024-08-26 09:40 | disposition home or self-care (01) ==
LOC: HO.HKASLDS 09:39
PROVIDERS: PCP Family Medicine; Visit Provider Internal Medicine Hypertension Specialist
DX: I12.9 Hypertensive chronic kidney disease with stage 1 through stage 4 chronic kidney disease, or unspecified chronic kidney disease (principal); N18.32 Chronic kidney disease, stage 3b; N20.0 Calculus of kidney; Z79.899 Other long term (current) drug therapy
CPT/HCPCS: 36415; 80048; 81003; 82570; 84156

== ENCOUNTER 2024-12-16 08:45 | Outpatient (AMB) | payer OTHER, SELFPAY ==
[2024-12-16 08:51] VITALS: BP 118/72; PULSE 74; O2SAT 98; BMI 33.1
--- NOTE | 2024-12-16 08:51 | HO.NEPHOV ---
Vital Signs 12/16/24 08:51 Height 5 ft 4 in Weight 193 lb BMI 33.1 BP 118/72 Blood Pressure Location Lt brachial Position Sitting Pulse 74 Pulse Source Pulse Oximeter Pulse Oximetry (%) 98 Oxygen Delivery Method Room Air Intake Visit Reasons: 4mon follow-up Conf Aligner Typewriter Required: No Accompanied by: Self / Same As Patient Allergies morphine Allergy (Verified 12/16/24 08:53) Nausea and Vomiting Medication List - Last Reconciled 12/16/24 by Paul Alston MD cholecalciferol (vitamin D3) 125 mcg PO DAILY diphenhydramine HCl 50 mg PO BEDTIME evolocumab (Repatha SureClick) mg subcut glipizide 5 mg PO DAILY losartan 50 mg PO DAILY spironolactone 50 mg PO DAILY timolol maleate 0.25% drps ophthalmic (eye) upadacitinib ER (Rinvoq) 15 mg PO DAILY HPI Comments Details: Pleasant 71-year-old man with a history of longstanding hypertension and nephrolithiasis along with rheumatoid arthritis was found to have chronic kidney disease. Recent serum creatinine was 1.44 mg/dL. Few months ago creatinine was 1.33. Back in 2021 serum creatinine was 1.21. She has borderline diabetes mellitus. She was initially on metformin and she discontinue this medication. At present she is not on any antihypertensive medications and blood sugar has been within the normal range. History of hypertension overall blood pressure has been well controlled. She is on losartan 50 mg and spironolactone 50 mg. She has been on these medications for last few years and has been no change in the dosage recently. She does not take any NSAIDs or other nephrotoxic agents. Her oral intake has been adequate. History of nephrolithiasis. She has undergone lithotripsy and stent placement. She still has multiple renal stones. RA: On Rinvoq BEing followed by [facility] Will check urien studies 12/16/24 74-year-old female presenting for routine evaluation of her chronic kidney disease. With a history of elevated cholesterol, she recently commenced treatment with Repatha injections to manage hyperlipidemia, having tolerated the initial dose without complication. Her rheumatoid arthritis is well-managed symptomatically Her previous issue with nephrolithiasis remains currently stable with no signs of recurrence. During the last check-up, her kidney function was maintained with stable results in both blood and urine tests. [facility] Medical History (Updated 04/22/24 @ 12:16 by Paul Alston MD) DONNA (obstructive sleep apnea) History of cervical cancer Primary osteoarthritis involving multiple joints Hirsutism Glaucoma Obesity Osteoporosis Microalbuminuria CKD (chronic kidney disease), stage III Diabetes Rheumatoid arthritis Hypertension Surgical History H/O lithotripsy H/O: hysterectomy S/P left knee arthroscopy Social History Current occupational status: retired Physical Exam Vital Signs: Last Vital Signs Pulse 74 12/16/24 08:51 BP 118/72 12/16/24 08:51 Pulse Ox 98 12/16/24 08:51 Oxygen Delivery Method Room Air 12/16/24 08:51 BMI result Body Mass Index 33.1 Comfortable Neck supple no JVD. Lungs entry equal no rales. Heart S1-S2 heard no gallop or rub. Abdomen soft nontender. Neuro alert awake oriented. No asterixis. Extremities no edema. Results Reviewed Nephrology Results: Hgb 12.8 g/dl (12.0-16.0) 04/22/24 WBC 5.4 X10*3/uL (4.8-10.8) 04/22/24 Plt Count 260 X10*3/uL (160-400) 04/22/24 Sodium 137 mmol/L (135-145) 08/26/24 Potassium 4.9 mmol/L (3.3-5.1) 08/26/24 Chloride 104 mmol/L (96-108) 08/26/24 Carbon Dioxide 28 mmol/L (22-29) 08/26/24 BUN 29 mg/dL (9-16) H 08/26/24 Creatinine 1.49 mg/dL (0.5-1.4) H 08/26/24 Calcium 10.2 mg/dL (8.4-10.2) 08/26/24 Phosphorus 3.6 mg/dL (2.7-4.5) 04/22/24 PTH Intact 95.5 pg/mL (8.7-77.1) H 04/22/24 Urine Protein Negative mg/dL (Neg-Trace) 08/26/24 Urine Creatinine 33.33 mg/dL 08/26/24 Renal US 05/04/24 Assessment & Plan Assessment & Plan (1) CKD (chronic kidney disease), stage III: Code(s): N18.30 - Chronic kidney disease, stage 3 unspecified Category: Medical (2) Bilateral nephrolithiasis: Code(s): N20.0 - Calculus of kidney Category: Medical Plan 74-year-old woman with stage IIIB chronic kidney disease. CKD 3 most likely due to underlying hypertensive nephrosclerosis. Other possibilities would include chronic nephrolithiasis.. Obstructive uropathy ruled out based on USG Even though she has had mild diabetes mellitus for the last few years I do not think she has underlying diabetic nephropathy. She has no significant proteinuria. No reason to believe she has any active glomerular nephritis or interstitial disease at this time. Recent Cr 1.49 and unchanged. Recommendation maintain blood pressure less than 130/80. Avoid hypotension. Continue to avoid nephrotoxic agents including NSAIDs. Low salt diet Encouraged to increase p.o. fluid intake to maintain urine output of at least 2 L. Will screen for anemia and SHPT. Orders: Orders Basic Metabolic Panel 4 Months N18.30 - Chronic kidney disease, stage 3 unspecified, N20.0 - Calculus of kidney UA and rflx microscopic 4 Months N18.30 - Chronic kidney disease, stage 3 unspecified, N20.0 - Calculus of kidney Creatinine Urine 4 Months N18.30 - Chronic kidney disease, stage 3 unspecified, N20.0 - Calculus of kidney Total Protein Urine Random Today N18.30 - Chronic kidney disease, stage 3 unspecified UA and rflx microscopic Today N18.30 - Chronic kidney disease, stage 3 unspecified Sodium Urine Random 4 Months N18.30 - Chronic kidney disease, stage 3 unspecified, N20.0 - Calculus of kidney Total Protein Urine Random 4 Months N18.30 - Chronic kidney disease, stage 3 unspecified, N20.0 - Calculus of kidney Basic Metabolic Panel Today N18.30 - Chronic kidney disease, stage 3 unspecified Sodium Urine Random 2 Weeks N18.30 - Chronic kidney disease, stage 3 unspecified Creatinine Urine Today N18.30 - Chronic kidney disease, stage 3 unspecified Coding Level of Care Code Est Pt Level 4 (25037) Diagnoses CKD (chronic kidney disease), stage III N18.30 Bilateral nephrolithiasis N20.0
--- OUTSIDE RECORDS SUMMARY | 2024-12-16 09:05 | XMS_ITS ---
Author Name [facility] Organization Unknown Encounters Encounter Type Encounter Reason Primary Diagnosis Location Date Ambulatory Other amnesia Other amnesia [facility] 10/14/2024 Care Team Organization Name Specialty Phone Email Start Date End Da te [facility] Primary Care 10/22/2024 [facility] Primary Care 10/14/2024
--- OUTSIDE RECORDS SUMMARY | 2024-12-16 09:05 | XMS_ITS | Clinical Summary ---
Author Organization [facility] Address [address] [place] [address] Care Team Providers Care First Cook Name Role Phone Naz Marquis Primary Care [...] age to complete this topic Care Teams First Cook Relationship Specialty Start Date End Date Naz Marquis [address] [place] [phone] PCP - General Internal Medicine 11/24/21
--- OUTSIDE RECORDS SUMMARY | 2024-12-16 09:05 | XMS_ITS | Clinical Summary ---
Author Organization [address] Address [address] [place] [phone] Phone Care Team Providers Care Cpht Name Role Phone Arash Coelho MD Primary Care Pr ovider Allergies Active Allergy Reactions Criticality Noted Date Comments Morphine Nausea And Vomiting 07/25/2009 Medications timolol (TIMOPTIC) 0.25 % ophthalmic solution Place 1 Drop into both eyes daily. 023 Active upadacitinib (Rinvoq) 15 mg tablet extended release 24 hr Take 15 mg by mouth daily. Active spironolactone (ALDACTONE) 50 mg tabletIndications:Prima ry hypertension Take 1 tablet (50 mg total) by mouth 1 (one) time each day. 90 tablet 1 025 Active losartan (COZAAR) 50 mg tabletIndications:Prima ry hypertension Take 1 tablet (50 mg total) by mouth 1 (one) time each day. 90 tablet 1 025 Active ezetimibe (ZETIA) 10 mg tabletIndications:Mixed hyperlipidemia TAKE ONE TABLET BY MOUTH EVERY DAY 90 tablet 1 025 Active diphenhydrAMINE (BENADRYL) 50 mg capsule Take 1 capsule (50 mg total) by mouth every 6 (six) hours if needed for itching. Active mv-mn/iron/folic acid/herb 190 (VITAMIN D3 COMPLETE ORAL) Take by mouth. Active omega-3 acid ethyl esters (LOVAZA) 1 gram capsule Take 1 capsule (1 g total) by mouth 2 (two) times a day. Active evolocumab (Repatha SureClick) 140 mg/mL pen injector injectionIndications:Pu re hypercholesterolemia Inject 1 mL (140 mg total) under the skin every 14 (fourteen) days. 1 mL 3 025 Active glipiZIDE (GLUCOTROL) 5 mg tabletIndications:Type 2 diabetes mellitus with stage 3a chronic kidney disease, without long-term current use of insulin ([facility] V24, [facility] V28) TAKE ONE TABLET BY MOUTH EVERY DAY 90 tablet 1 025 Active denosumab (PROLIA) 60 mg/mL syringe syringeIndications:Oste oporosis without current pathological fracture, unspecified osteoporosis type Inject 1 mL (60 mg total) under the skin 1 (one) time for 1 dose. 1 mL 025 Active denosumab (Prolia) 60 mg/mL syringe syringe Inject 1 mL (60 mg total) under the skin 1 (one) time. 2024 Discontinued glipiZIDE (GLUCOTROL) 5 mg tabletIndications:Type 2 diabetes mellitus with stage 3a chronic kidney disease, without long-term current use of insulin ([facility] V24, [facility] V28) Take 1 tablet (5 mg total) by mouth 1 (one) time each day. 90 each 025 2024 Discontinued Active Problems Problem Noted Date Diagnosed Date Hypertension 05/14/2024 Assessment & Plan (09/02/2024 3:06 PM EST): Reasonably controlled. Goal is less than 130/80 given her CKD. For now continue losartan and spironolactone. Will consider increasing losartan at next visit Orders: spironolactone (ALDACTONE) 50 mg tablet; Take 1 tablet (50 mg total) by mouth 1 (one) time each day. losartan (COZAAR) 50 mg tablet; Take 1 tablet (50 mg total) by mouth 1 (one) time each day. Nephrolithiasis 05/14/2024 DONNA (obstructive sleep apnea) 05/14/2024 Overview (05/14/2024): UNTREATED (10/03/23) Assessment & Plan (09/02/2024 3:06 PM EST): Follow-up with ENT as scheduled in November. Intolerant to CPAP Rheumatoid arthritis ([facility] V24, [facility] V28) 05/14/2024 Assessment & Plan (09/02/2024 3:06 PM EST): Continue rheumatology follow-up. Continue Rinvoq 15 mg daily Type II diabetes mellitus wi th renal manifestations ([facility] V24, [facility] V28) 05/14/2024 Assessment & Plan (09/02/2024 3:06 PM EST): Continue lifestyle management. Advised to try to increase her exercise. Due for repeat A1c. If still >7, will recommend Jardiance due to her CKD Will update labs Orders: Hemoglobin A1c; Future Comprehensive metabolic panel; Future CKD (chronic kidney disease) stage 3, GFR 30-59 ml/min ([facility] V24, [facility] V28) 10/03/2023 Assessment & Plan (09/02/2024 3:06 PM EST): Will update labs. Continue follow up with nephrology-Dr. Paul Alston, Orders: Comprehensive metabolic panel; Future Vitamin D 1,25 dihydroxy; Future Microalbuminuria 10/03/2023 Osteoporosis 02/06/2023 Assessment & Plan (09/02/2024 3:06 PM EST): Continue follow-up with endocrinology. Still pending Prolia Obesity (BMI 30.0-34.9) 01/25/2023 Assessment & Plan (09/02/2024 3:06 PM EST): Lifestyle counseling provided Glaucoma of both eyes 10/24/2022 Assessment & Plan (09/02/2024 3:06 PM EST): Continue ophthalmology follow-up and timolol eyedrops daily Hirsutism 11/27/2018 Primary osteoarthritis involving multiple joints 11/06/2018 Hyperlipidemia 10/24/2017 Assessment & Plan (09/02/2024 3:06 PM EST): Referred to cardiology in February 2024. States she was not contacted for an appointment. She is intolerant to statins. For now we will trial Zetia. Another referral was placed to cardiology. Will update labs Orders: Lipid panel with reflex to direct LDL; Future Comprehensive metabolic panel; Future ezetimibe (ZETIA) 10 mg tablet; Take 1 tablet (10 mg total) by mouth 1 (one) time each day. Ambulatory referral to Cardiology; Future Homocysteine, total; Future Encounters Date Type Department Care Team Description 12/03/2024 9:00 AM EDT Office Visit [address] [phone] Uday Hardin MD Osteoporosis without current pathological fracture, unspecified osteoporosis type (Primary Dx) 12/03/[address] [phone] Uday Hardin MD Referral 11/25/2024 Telephone [facility] - [facility] [address] [phone] Eli Tate MD Prior Auth (Repatha SureClick 140MG/ML auto-injectors) 11/17/2024 Telephone Adult Medicine [address] [phone] Arash Coelho MD Referral (Insurance referral for Ear Nose And throat) 11/16/2024 8:20 AM EDT Office Visit [facility] [address] [facility] [address] [place] [phone] Eli Tate MD Pure hypercholesterolemia (Primary Dx); Primary hypertension; Murmur, cardiac 11/06/2024 Telephone Adult Medicine [address] [phone] Arash Coelho MD Referral (Ophthalmology Insurance Referral) 11/04/2024 Telephone [facility] - [facility] [address] [place] [phone] Arash Coelho MD 10/22/2024 Telephone Endocrinology [id number] [place] [phone] Uday Hardin MD Appointment from Last 3 Months Immunizations Name Administration [...] For diverticulitis OTHER SURGICAL HISTORY 2011 PROCEDURE: MS COLECTOMY PARTIAL W/ANASTOMOSIS OTHER SURGICAL HISTORY 05/20/2019 PROCEDURE: ---- OTHER ----; COMMENT: Cathi. Ureteral stent placement LITHOTRIPSY 06/2019 Left PROCEDURE: HISTORICAL LITHOTRIPSY; COMMENT: Wason LITHOTRIPSY 07/2019 Right PROCEDURE: HISTORICAL LITHOTRIPSY; COMMENT: Wason Medical History Medical History Date Comments Hypertension DX:Hypertension Rheumatoid arthritis ([facility] V24, [facility] V28) DX:Rheumatoid arthritis (HCC ); COMMENT: Ez DONNA (obstructive sleep apnea) DX :DONNA (obstructive sleep apnea) Nephrolithiasis DX:Nephrolithias is; COMMENT: Jones Hyperlipidemia 10/24/2017 DX:Hyperlipidemi a Diabetes mellitus type 2, uncomplicated (CMS/HCC V24, CMS/HCC V28) DX:Diabetes mellitus type 2, uncomplicated ([facility]) History of cervical cancer DX:Hi story of cervical cancer; COMMENT: s/p hysterectomy Primary osteoarthritis invol ving multiple joints 11/06/2018 DX:Primary osteoarthritis in volving multiple joints History of diverticulitis of colon DX:History of diverticulitis of colon Osteopenia DX:Osteopenia Family History Medical History Relation Name Comments Other: CAD Father [place], at age 59 Stroke Maternal Grandmother Hypertension Mother Other: Substance abuse Sister Relation Name Status Comments Father Maternal Grandmother Mother Sister Social History Tobacco Use Types Packs/Day Years Used Date Smoking Tobacco: Former Cigarettes 2 33 0 08/05/1964 - 08/05/1997 Smokeless Tobacco: Never Tobacco Cessation:Counseling Given: Not Answered Alcohol Use Standard Drinks/Week Comments Never 0 (1 standard drink = 0.6 oz pur e alcohol) Housing Instability Answer Date Recorde d Are you worried that in the next 2 months you may not have stable housing? No 10/11/2024 Food Access & Nutrition Answer Date Rec orded Do you have access to a vari ety of food including fruits and vegetables? Yes 10/11/2024 Access to Healthcare Answer Date Record ed Within the last 3 months, ho w many times did you visit the emergency department for your medical care? 0 10/11/2024 Health Literacy Answer Date Recorded How often do you need to hav e someone help you when you read instructions, pamphlets, or other written material from your doctor or pharmacy? Never 10/11/2024 Caregiver: How often do you need to have someone help you when you read instructions, pamphlets, or other written material from your doctor or pharmacy? Not on file 10/11/2024 Financial Risk Answer Date Recorded How hard is it for you to pa y for the very basics like food, housing, medical care, and air conditioning / heating? Not very hard 10/11/2024 Transportation Answer Date Recorded Has the lack of transportati on kept you from meetings, work, or from getting things needed for daily living? No Has the lack of transportati on kept you from medical appointments or from getting medications? No 10/11/2024 Social Isolation Answer Date Recorded How often do you feel lonely or isolated from th ose around you? Never 10/11/2024 Food Risk Answer Date Recorded Within the past 12 months we worried whether our food would run out before we got money to buy more. Never true 10/11/2024 Within the past 12 months th e food we bought just didn't last and we didn't have money to get more. Never true 10/11/2024 Dependent Care Answer Date Recorded Do you need help finding or paying for care for your loved ones. For example, director child abuse therapy or elderly care for an older adult? No 10/11/2024 Education Answer Date Recorded Do you think completing more education or training, like finishing a GED, going to college, or learning a trade, would be helpful for you? No 10/11/2024 Employment and Income Answer Date Recor ded During the last four weeks, have you been actively looking for work? No 10/11/2024 Living Situation Answer Date Recorded What is your living situation? 0 10/11/2024 Comments Unknown Sex and Gender Information Value Date Recorded Sex Assigned at Not on file Legal Sex Female 1:47 PM EST Gender Identity Not on file Sexual Orientation Not on file Obstetrics History Last Filed Vital Signs Vital Sign Reading Time Taken Comments Blood Pressure 127/71 12/03/2024 8:53 AM EDT Pulse 76 12/03/2024 8:53 AM EDT Temperature 35.7 ??C (96.3 ??F) 12/03/2024 8:53 AM ED T Respiratory Rate 16 2024 8:23 AM EST Oxygen Saturation 96% 12/03/2024 8:53 AM EDT Inhaled Oxygen Concentration - - Weight 88 kg (194 lb) 12/03/2024 8:53 AM EDT Height 162.6 cm (5' 4 ) 12/03/2024 8:53 AM EDT Body Mass Index 33.3 12/03/2024 8:53 AM EDT Plan of Treatment Upcoming Encounters Date Type Department Care Team (Late st Contact Info) Description 03/01/2025 9:00 AM EDT Office Visit Adult Medicine [address] [phone] Arash Coelho MD [address] [place] [address] 06/07/2025 9:30 AM EST Office Visit [address] [phone] Uday Hardin MD [address] [place] [phone] Health Maintenance Due Date Last Done Comments Diabetes: Annual Retina Eye Exam 09/29/2024 09/29/2023 Diabetes: Annual Urine Albumin-Creatinine Ratio (uACR) 02/13/2025 02/14/2024 Diabetes: Annual Foot Exam 02/20/2025 02/21/2024 Falls Risk Assessment 02/20/2025 02/21/2024 Medicare Annual Wellness Visit 02/20/2025 02/21/2024 Diabetes: Blood Sugar Control Test (HGBA1C) 03/02/2025 09/02/2024, 02/21/2024, 02/21/2024 Diabetes: Annual GFR (Glomerular Filtration Rate) 09/02/2025 09/02/2024, 02/14/2024, 02/14/2024, Additional history exists Hypertension/CHF/CAD Annual BMP Blood Test 09/02/2025 09/02/2024, 02/14/2024, 02/14/2024, Additional history exists Breast Cancer Screening 09/13/2025 09/13/2023, 01/28 Depression Screening 10/11/2025 10/11/2024, 02/21/20 24 Social Influencers of Health Screening 10/11/2025 10/11/2024 Cholesterol Screening (Lipid Panel) 09/02/2029 09/02/2024, 02/14/2024, 02/14/2024 Osteoporosis Screening (Bone Density Screening) 01/28/2033 01/28/2023, 10/19/2019 Colorectal Cancer Screening: Colonoscopy 10/21/2034 10/21/2024, 07/04/2017 DTaP,Tdap,and Td Vaccines Discontinued 04/04/2006 COVID-19 Vaccine Discontinued 07/05/2021, 04/2021, 10/13/2020 Hepatitis C Screening Completed 01/04/2023 HIB Vaccines Aged Out No longer eligi ble based on patient's age to complete this topic HPV Vaccines Aged Out No longer eligi ble based on patient's age to complete this topic Hepatitis A Vaccines Discontinued Hepatitis B Vaccines Aged Out No long er eligible based on patient's age to complete this topic IPV Vaccines Aged Out No longer eligi ble based on patient's age to complete this topic Influenza Vaccine Discontinued MMR Vaccines Aged Out No longer eligi ble based on patient's age to complete this topic Meningococcal ACWY Vaccine Aged Out N o longer eligible based on patient's age to complete this topic Meningococcal B Vaccine Aged Out No l onger eligible based on patient's age to complete this topic Pneumococcal Vaccine: 50+ Years Discontinued RSV Immunization Adult Patients Discontinued RSV Immunization Patients Under 20 months Aged Out No longer eligible based on patient's age to complete this topic Varicella Vaccines Aged Out No longer eligible based on patient's age to complete this topic Zoster Vaccines Discontinued Procedures Procedure Name Priority Date/Time Associated Diagnosis Comments ECG 12-LEAD Routine 11/16/2024 8:18 AM EDT Pure hypercholesterolemia COLONOSCOPY Routine 10/21/2024 3:59 PM EDT COMPREHENSIVE METABOLIC PANEL Routine 09/02/2024 8:10 AM EST Type 2 diabetes mellitus with stage 3b chronic kidney disease, without long-term current use of insulin ([facility] V24, [facility] V28) Mixed hyperlipidemia Stage 3b chronic kidney disease ([facility] V24, [facility] V28) Memory loss HEMOGLOBIN A1C Routine 09/02/2024 8:10 AM EST Type 2 diabetes mellitus with stage 3b chronic kidney disease, without long-term current use of insulin ([facility]/HCC V24, CMS/HCC V28) Mixed hyperlipidemia Stage 3b chronic kidney disease (CMS/HCC V24, CMS/HCC V28) Memory loss LIPID PANEL WITH REFLEX TO DIRECT LDL Routine 09/02/2024 8:10 AM EST Type 2 diabetes mellitus with stage 3b chronic kidney disease, without long-term current use of insulin ([facility] V24, [facility] V28) Mixed hyperlipidemia Stage 3b chronic kidney disease (CMS/HCC V24, CMS/HCC V28) Memory loss DIABETES FOOT EXAM Routine 02/21/2024 URINE ALBUMIN CREATININE RATIO Routine 02/14/2024 DIABETES EYE EXAM Routine 09/29/2023 MG MAMMO DIGITAL DIAGNOSTIC LEFT Routine 09/13/2023 10:50 AM EST JARRET DEXA AXIAL SKELETON Routine 01/28/2023 11:02 AM EDT Encounter for screening for osteoporosis HM HEPATITIS C SCREENING Routine 01/04/2023 from Last 3 Months or Most Recently Relevant to Health Maintenance Results * ECG 12 lead (11/16/2024 8:18 AM EDT) Ventricular Rate ECG 77 BPM GEMUSE Atrial Rate 77 BPM GEMUSE P-R Interval 168 ms GEMUSE QRS Duration 92 ms GEMUSE Q-T Interval 380 ms GEMUSE QTc 430 ms GEMUSE P Wave Milligan 75 degrees GEMUSE R Milligan 66 degrees GEMUSE T Milligan 75 degrees GEMUSE ECG Interpretation Sinus rhythm with frequent Premature ventricular complexes Otherwise normal ECG When compared with ECG of 01-DEC-2021 15:28, Premature ventricular complexes are now Present Confirmed by ELI TATE ([id number]) on 11/16/2024 9:55:09 AM GEMUSE 11/16/2024 8:18 AM EDT 11/16/2024 9:55 AM EDT Eli Tate MD ECG ORDERABLES Final Result GEMUSE * COLONOSCOPY (10/21/2024 3:59 PM EDT) Anatomical Region Laterality Modality Endoscopy Historical Provider GI~PROCEDURE ORDERABLES F inal Result * (ABNORMAL) Lipid panel with reflex to direct LDL (09/02/2024 8:10 AM EST) Cholesterol 248(H) 0 - 200 mg/dL LAB CHEMISTRY METHOD 09/02/2024 12:31 PM EST [facility] Triglycerides 87 0 - 150 mg/dL LAB CHEMISTRY METHOD 09/02/2024 12:31 PM EST [facility] HDL 56 >=40 mg/dL LAB CHEMISTRY METHOD 09/02/2024 12:31 PM EST [facility] LDL Calculated 175(H) 0 - 100 mg/dL LAB CHEMISTRY METHOD 09/02/2024 12:31 PM EST [facility] VLDL Cholesterol Hector 17.4 mg/dL LAB CHEMISTRY METHOD 09/02/2024 12:31 PM EST [facility] Non HDL Chol. (LDL+VLDL) 192(H) <145 mg/dL LAB CHEMISTRY METHOD 09/02/2024 12:31 PM EST [facility] Chol/HDL Ratio 4.4 0.0 - 4.4 LAB CHEMISTRY METHOD 09/02/2024 12:31 PM EST [facility] Blood Venous blood specimen / Unknown Venipuncture / Unknown 09/02/2024 8:10 AM EST 09/02/2024 8:10 AM EST Arash Coelho MD LAB BLOOD ORDERA BLES Final Result Performing Organization Address City/[facility]/ZIP Co de Phone Number [facility] [address] [place] [address], [place] [phone] * (ABNORMAL) Hemoglobin A1c (09/02/2024 8:10 AM EST) Hemoglobin A1C 7.6(H) <6.5 % LAB CHEMISTRY METHOD 09/02/2024 11:22 AM EST [facility] Mean Bld Glu Estim. 171 mg/dL LAB CHEMISTRY METHOD 09/02/2024 11:22 AM EST [facility] Blood Venous blood specimen / Unknown Venipuncture / Unknown 09/02/2024 8:10 AM EST 09/02/2024 8:10 AM EST Arash Coelho MD LAB BLOOD ORDERA BLES Final Result [facility] [address] [place] [address], [place] [phone] * (ABNORMAL) Comprehensive metabolic panel (09/02/2024 8:10 AM EST) Sodium 135 133 - 145 mmol/L LAB CHEMISTRY METHOD 09/02/2024 12:31 PM [facility] Potassium 4.5 3.5 - 5.5 mmol/L LAB CHEMISTRY METHOD 09/02/2024 12:31 PM [facility] Chloride 102 96 - 110 mmol/L LAB CHEMISTRY METHOD 09/02/2024 12:31 PM [facility] CO2 26 21 - 32 mmol/L LAB CHEMISTRY METHOD 09/02/2024 12:31 PM [facility] Anion Gap 7 3 - 11 LAB CHEMISTRY METHOD 09/02/2024 12:31 PM [facility] Glucose 136(H) 70 - 100 mg/dL LAB CHEMISTRY METHOD 09/02/2024 12:31 PM [facility] BUN 31(H) 5 - 25 mg/dL LAB CHEMISTRY METHOD 09/02/2024 12:31 PM [facility] Creatinine 1.39(H) 0.50 - 1.10 mg/dL LAB CHEMISTRY METHOD 09/02/2024 12:31 PM [facility] eGFR 40(L) >=60 mL/min/1. 73m2 LAB CHEMISTRY METHOD 09/02/2024 12:31 PM [facility] Comment:Calculation based on the??Chronic Kidney Disease Epidemiology Collaboration (CKD-EPI) equation refit??without adjustment for race. BUN/Creatinine Ratio 22.3 LAB CHEMISTRY METHOD 09/02/2024 12:31 PM [facility] Calcium 9.9 8.5 - 10.5 mg/dL LAB CHEMISTRY METHOD 09/02/2024 12:31 PM [facility] AST (SGOT) 15 10 - 42 unit/L LAB CHEMISTRY METHOD 09/02/2024 12:31 PM [facility] ALT (SGPT) 26 10 - 60 unit/L LAB CHEMISTRY METHOD 09/02/2024 12:31 PM EST [facility] Alkaline Phosphatase 65 42 - 121 unit/L LAB CHEMISTRY METHOD 09/02/2024 12:31 PM [facility] Total Protein 8.0 6.0 - 8.0 g/dL LAB CHEMISTRY METHOD 09/02/2024 12:31 PM [facility] Albumin 4.0 3.2 - 5.0 g/dL LAB CHEMISTRY METHOD 09/02/2024 12:31 PM [facility] Total Bilirubin 0.3 0.0 - 1.4 mg/dL LAB CHEMISTRY METHOD 09/02/2024 12:31 PM [facility] Blood Venous blood specimen / Unknown Venipuncture / Unknown 09/02/2024 8:10 AM EST 09/02/2024 8:10 AM EST Result [facility] Arash Coelho MD LAB BLOOD ORDERA BLES Final Result [facility] [address] [place] [address], [place] [phone] * Diabetes Foot Exam (02/21/2024) [facility] Diabetes: Annual Foot Exam abstracted Result [facility] Historical Provider HEALTH MAINTENANCE Final Result * Urine Albumin Creatinine Ratio (02/14/2024) [facility] Urine Albumin Creatinine Ratio abstracted Result [facility] Historical Provider HEALTH MAINTENANCE Final Result * Diabetes Eye Exam (09/29/2023) [facility] Diabetes: Annual Retina Eye Exam abstracted Result [facility] Historical Provider HEALTH MAINTENANCE Final Result * MG Mammo Digital Diagnostic Left (09/13/2023 10:50 AM EST) Anatomical Region Laterality Modality Breast Left Mammography Result [facility] Arash Coelho MD IMG BI PROCEDURE S Final Result * JARRET DEXA AXIAL SKELETON (01/28/2023 11:02 AM EDT) Anatomical Region Laterality Modality Mammography 01/28/2023 10:0 3 AM EDT Narrative 01/28/2023 11:02 AM EDT [facility] Diagnostic Imaging Department [address] [place] [phone] Patient: ??NIA MÁRQUEZ ?/Age/Sex: 1950 - 72 - F Unit#: ??[id number] ? Location/Status: ??SPDIMAM/REG CLI ? Mnemonic/Ordering Site: ??MAMDEXAAX/SPMAM Ordering Physician: ??ARASH COELHO [facility] Dexa Axial Skeleton - 01/28/23 - [id number] Report Status:Signed HISTORY: ??The patient is a [...] probability of hip fracture of 7.8%. Code 82526 Dictating Physician: ??LARRY ALCOCER MD Electronically Signed by: ??LARRY ALCOCER MD Dic Date/Time: ??01/28/23 1101 Sign date/Time: ??01/28/23 1102 Procedure Note Larry Alcocer MD - 09/10/2023 [facility] Diagnostic Imaging Department [address] [place] [address] Patient: CHETANMaiaNIA/Age/Sex: 1950 - 72 - F Unit#: [id number] Location/Status: [facility]em[facility] Ordering Physician: ARASH COELHO Jarret Dexa Axial [...] density of the femurs bilaterally is 0.768 gm/[id number] is 76% of that of young normals [...] probability of hip fracture of 7.8%. Code 86053 Dictating Physician: LARRY ALCOCER MD Electronically Signed by: LARRY ALCOCER MD Dic Date/Time: 01/28/23 1101 Sign date/Time: 01/28/23 1102 Arash Coelho MD [facility] PROCEDURE S Final Result * Hepatitis C Screening (01/04/2023) [facility] Hepatitis C Screening abstracted Historical Provider HEALTH MAINTENANCE Final Result from Last 3 Months or Most Recently Relevant to Health Maintenance Insurance [employer] Care Teams Cpht Relationship Specialty Start Date End Date Arash Coelho MD [address] [place] [address] [phone] PCP - General 10/01/22
== END 2024-12-16 09:11 | disposition home or self-care (01) ==
LOC: HO.HKAS 08:46
PROVIDERS: PCP Family Medicine; Visit Provider Internal Medicine Hypertension Specialist
DX: N18.30 Chronic kidney disease, stage 3 unspecified (principal); N20.0 Calculus of kidney
CPT/HCPCS: 99214

== ENCOUNTER 2024-12-16 08:45 | Outpatient (REF) | payer OTHER, SELFPAY ==
--- OUTSIDE RECORDS SUMMARY | 2024-12-16 09:42 | XMS_ITS | Clinical Summary ---
Author Organization [facility] Address [address] [place] [address] Care Team Providers Care Attic Fans Mechanic Name Role Phone Naz Marquis Primary Care [...] age to complete this topic Care Teams Attic Fans Mechanic Relationship Specialty Start Date End Date Naz Marquis [address] [place] [phone] PCP - General Internal Medicine 11/24/21
--- OUTSIDE RECORDS SUMMARY | 2024-12-16 09:42 | XMS_ITS | Clinical Summary ---
Author Organization [address] Address [address] [place] [phone] Phone Care Team Providers Care Edger Tailer Name Role Phone Arash Coelho MD Primary [...] disease, without long-term current use of insulin ([facility] V24, [facility] V28) TAKE ONE TABLET BY MOUTH EVERY [...] disease, without long-term current use of insulin ([facility] V24, [facility] V28) Take 1 tablet (5 mg total) [...] in November. Intolerant to CPAP Rheumatoid arthritis ([facility] V24, [facility] V28) 05/14/2024 Assessment & Plan (09/02/2024 3:06 PM EST): Continue rheumatology follow-up. Continue Rinvoq 15 mg daily Type II diabetes mellitus wi th renal manifestations ([facility] V24, [facility] V28) 05/14/2024 Assessment & Plan (09/02/2024 3:06 PM EST): Continue lifestyle management. Advised to try to increase her exercise. Due for repeat A1c. If still >7, will recommend Jardiance due to her CKD Will update labs Orders: Hemoglobin A1c; Future Comprehensive metabolic panel; Future CKD (chronic kidney disease) stage 3, GFR 30-59 ml/min ([facility] V24, [facility] V28) 10/03/2023 Assessment & Plan (09/02/2024 3:06 [...] Description 12/03/2024 9:00 AM EDT Office Visit [address] [phone] Uday Hardin MD Osteoporosis without current pathological fracture, unspecified osteoporosis type (Primary Dx) 12/03/[address] [phone] Uday Hardin MD Referral 11/25/2024 Telephone [facility] [address] [phone] Eli Tate MD Prior Auth (Repatha SureClick 140MG/ML auto-injectors) 11/17/2024 Telephone Adult Medicine [address] [phone] Arash Coelho MD Referral (Insurance referral for Ear Nose And throat) 11/16/2024 8:20 AM EDT Office Visit [facility] [address] 300 [facility] 154 [place] [phone] Eli Tate MD Pure hypercholesterolemia (Primary Dx); Primary hypertension; Murmur, cardiac 11/06/2024 Telephone Adult Medicine [address] [phone] Arash Coelho MD Referral (Ophthalmology Insurance Referral) 11/04/2024 Telephone [facility] [address] [place] [phone] Arash Coelho MD 10/22/2024 Telephone Endocrinology [phone] [place] [phone] Uday Hardin MD Appointment from Last 3 [...] For diverticulitis OTHER SURGICAL HISTORY 2011 PROCEDURE: AR COLECTOMY PARTIAL W/ANASTOMOSIS OTHER SURGICAL HISTORY 05/20/2019 PROCEDURE: ---- OTHER ----; COMMENT: Cathi. Ureteral stent placement LITHOTRIPSY 06/2019 Left PROCEDURE: HISTORICAL LITHOTRIPSY; COMMENT: Wason LITHOTRIPSY 07/2019 Right PROCEDURE: HISTORICAL LITHOTRIPSY; COMMENT: Wason Medical History Medical History Date Comments Hypertension DX:Hypertension Rheumatoid arthritis ([facility] V24, [facility] V28) DX:Rheumatoid arthritis (HCC ); COMMENT: Ez DONNA (obstructive sleep apnea) DX :DONNA (obstructive sleep apnea) Nephrolithiasis DX:Nephrolithias is; COMMENT: Jones Hyperlipidemia 10/24/2017 DX:Hyperlipidemi a Diabetes mellitus type 2, uncomplicated (CMS/HCC V24, CMS/HCC V28) DX:Diabetes mellitus type 2, uncomplicated ([facility]) History of cervical cancer DX:Hi story of cervical cancer; COMMENT: s/p hysterectomy Primary osteoarthritis invol ving multiple joints 11/06/2018 DX:Primary osteoarthritis in volving multiple joints History of diverticulitis of colon DX:History of diverticulitis of colon Osteopenia DX:Osteopenia Family History Medical History Relation Name Comments Other: CAD Father [place], at age 59 Stroke Maternal Grandmother Hypertension [...] care for your loved ones. For example, child care associate or elderly care for an older adult? [...] 9:00 AM EDT Office Visit Adult Medicine [address] [phone] Arash Coelho MD [address] [place] [address] 06/07/2025 9:30 AM EST Office Visit [address] [phone] Uday Hardin MD [address] [place] [phone] Health Maintenance Due Date Last Done Comments [...] disease, without long-term current use of insulin ([facility] V24, [facility] V28) Mixed hyperlipidemia Stage 3b chronic kidney disease ([facility] V24, [facility] V28) Memory loss HEMOGLOBIN A1C Routine 09/02/2024 8:10 AM EST Type 2 diabetes mellitus with stage 3b chronic kidney disease, without long-term current use of insulin ([facility]/HCC V24, CMS/HCC V28) Mixed hyperlipidemia Stage 3b chronic kidney disease (CMS/HCC V24, CMS/HCC V28) Memory loss LIPID PANEL WITH REFLEX TO DIRECT LDL Routine 09/02/2024 8:10 AM EST Type 2 diabetes mellitus with stage 3b chronic kidney disease, without long-term current use of insulin ([facility] V24, [facility] V28) Mixed hyperlipidemia Stage 3b chronic kidney [...] GEMUSE QTc 430 ms GEMUSE P Wave [place] 75 degrees GEMUSE R Austin 66 degrees GEMUSE T Austin 75 degrees GEMUSE ECG Interpretation Sinus rhythm [...] LAB CHEMISTRY METHOD 09/02/2024 12:31 PM EST [facility] Triglycerides 87 0 - 150 mg/dL LAB CHEMISTRY METHOD 09/02/2024 12:31 PM EST [facility] HDL 56 >=40 mg/dL LAB CHEMISTRY METHOD 09/02/2024 12:31 PM EST [facility] LDL Calculated 175(H) 0 - 100 mg/dL LAB CHEMISTRY METHOD 09/02/2024 12:31 PM EST [facility] VLDL Cholesterol Hector 17.4 mg/dL LAB CHEMISTRY METHOD 09/02/2024 12:31 PM EST [facility] Non HDL Chol. (LDL+VLDL) 192(H) <145 mg/dL LAB CHEMISTRY METHOD 09/02/2024 12:31 PM EST [facility] Chol/HDL Ratio 4.4 0.0 - 4.4 LAB CHEMISTRY METHOD 09/02/2024 12:31 PM EST [facility] Blood Venous blood specimen / Unknown Venipuncture / Unknown 09/02/2024 8:10 AM EST 09/02/2024 8:10 AM EST Arash Coelho MD LAB BLOOD ORDERA BLES Final Result Performing Organization Address City/[facility]/ZIP Co de Phone Number [facility] [address] [place] [address], [place] [phone] * (ABNORMAL) Hemoglobin A1c (09/02/2024 8:10 AM EST) Hemoglobin A1C 7.6(H) <6.5 % LAB CHEMISTRY METHOD 09/02/2024 11:22 AM EST [facility] Mean Bld Glu Estim. 171 mg/dL LAB CHEMISTRY METHOD 09/02/2024 11:22 AM EST [facility] Blood Venous blood specimen / Unknown Venipuncture / Unknown 09/02/2024 8:10 AM EST 09/02/2024 8:10 AM EST Arash Coelho MD LAB BLOOD ORDERA BLES Final Result [facility] [address] [place] [address], [place] [phone] * (ABNORMAL) Comprehensive metabolic panel (09/02/2024 8:10 AM EST) Sodium 135 133 - 145 mmol/L LAB CHEMISTRY METHOD 09/02/2024 12:31 PM [facility] Potassium 4.5 3.5 - 5.5 mmol/L LAB CHEMISTRY METHOD 09/02/2024 12:31 PM [facility] Chloride 102 96 - 110 mmol/L LAB CHEMISTRY METHOD 09/02/2024 12:31 PM [facility] CO2 26 21 - 32 mmol/L LAB CHEMISTRY METHOD 09/02/2024 12:31 PM [facility] Anion Gap 7 3 - 11 LAB CHEMISTRY METHOD 09/02/2024 12:31 PM [facility] Glucose 136(H) 70 - 100 mg/dL LAB CHEMISTRY METHOD 09/02/2024 12:31 PM [facility] BUN 31(H) 5 - 25 mg/dL LAB CHEMISTRY METHOD 09/02/2024 12:31 PM [facility] Creatinine 1.39(H) 0.50 - 1.10 mg/dL LAB CHEMISTRY METHOD 09/02/2024 12:31 PM [facility] eGFR 40(L) >=60 mL/min/1. 73m2 LAB CHEMISTRY METHOD 09/02/2024 12:31 PM [facility] Comment:Calculation based on the??Chronic Kidney Disease Epidemiology Collaboration (CKD-EPI) equation refit??without adjustment for race. BUN/Creatinine Ratio 22.3 LAB CHEMISTRY METHOD 09/02/2024 12:31 PM [facility] Calcium 9.9 8.5 - 10.5 mg/dL LAB CHEMISTRY METHOD 09/02/2024 12:31 PM [facility] AST (SGOT) 15 10 - 42 unit/L LAB CHEMISTRY METHOD 09/02/2024 12:31 PM [facility] ALT (SGPT) 26 10 - 60 unit/L LAB CHEMISTRY METHOD 09/02/2024 12:31 PM EST [facility] Alkaline Phosphatase 65 42 - 121 unit/L LAB CHEMISTRY METHOD 09/02/2024 12:31 PM [facility] Total Protein 8.0 6.0 - 8.0 g/dL LAB CHEMISTRY METHOD 09/02/2024 12:31 PM [facility] Albumin 4.0 3.2 - 5.0 g/dL LAB CHEMISTRY METHOD 09/02/2024 12:31 PM [facility] Total Bilirubin 0.3 0.0 - 1.4 mg/dL LAB CHEMISTRY METHOD 09/02/2024 12:31 PM [facility] Blood Venous blood specimen / Unknown Venipuncture / Unknown 09/02/2024 8:10 AM EST 09/02/2024 8:10 AM EST Result [facility] Arash Coelho MD LAB BLOOD ORDERA BLES Final Result [facility] [address] [place] [address], [place] [phone] * Diabetes Foot Exam (02/21/2024) [facility] Diabetes: Annual Foot Exam abstracted Result [facility] Historical Provider HEALTH MAINTENANCE Final Result * Urine Albumin Creatinine Ratio (02/14/2024) [facility] Urine Albumin Creatinine Ratio abstracted Result [facility] Historical Provider HEALTH MAINTENANCE Final Result * Diabetes Eye Exam (09/29/2023) [facility] Diabetes: Annual Retina Eye Exam abstracted Result [facility] Historical Provider HEALTH MAINTENANCE Final Result * MG Mammo Digital Diagnostic Left (09/13/2023 10:50 AM EST) Anatomical Region Laterality Modality Breast Left Mammography Result [facility] Arash Coelho MD IMG BI PROCEDURE S Final Result * JARRET DEXA AXIAL SKELETON (01/28/2023 11:02 AM EDT) Anatomical Region Laterality Modality Mammography 01/28/2023 10:0 3 AM EDT Narrative 01/28/2023 11:02 AM EDT [facility] Diagnostic Imaging Department [address] [place] [id number] Patient: ??NIA MÁRQUEZ ?/Age/Sex: 1950 - 72 - F Unit#: ??[id number] ? Location/Status: ??SPDIMAM/REG CLI ? Mnemonic/Ordering Site: ??MAMDEXAAX/SPMAM Ordering Physician: ??ARASH COELHO [facility] Dexa Axial Skeleton - 01/28/23 - 8701 Report Status:Signed HISTORY: ??The patient is a [...] probability of hip fracture of 7.8%. Code 05200 Dictating Physician: ??LARRY ALCOCER MD Electronically Signed by: ??LARRY ALCOCER MD Dic Date/Time: ??01/28/23 1101 Sign date/Time: ??01/28/23 1102 Procedure Note Larry Alcocer MD - 09/10/2023 [facility] Diagnostic Imaging Department [address] [place] [address] Patient: CHETANMaiaNIA/Age/Sex: 1950 - 72 - F Unit#: [id number] Location/Status: [facility] Ordering Physician: ARASH COELHO Jarret Dexa Axial [...] density of the femurs bilaterally is 0.768 gm/[id number] is 76% of that of young normals [...] probability of hip fracture of 7.8%. Code 93306 Dictating Physician: LARRY ALCOCER MD Electronically Signed by: LARRY ALCOCER MD Dic Date/Time: 01/28/23 1101 Sign date/Time: 01/28/23 1102 Arash Coelho MD [facility] PROCEDURE S Final Result * Hepatitis C Screening (01/04/2023) [facility] Hepatitis C Screening abstracted Historical Provider HEALTH MAINTENANCE Final Result from Last 3 Months or Most Recently Relevant to Health Maintenance Insurance [employer] Care Teams Edger Tailer Relationship Specialty Start Date End Date Arash Coelho MD [address] [place] [address] [phone] PCP - General 10/01/22
[2024-12-16 18:21] LABS: Appearance Urine Clear; Color Urine Yellow; Glucose Urine UA Negative (Negative); Leukocyte Esterase Urine Trace (Negative); Nitrite Urine Negative (Negative); PH 6.5 (5.0-9.0); Specific Gravity - Urine <= 1.005 (1.005-1.025); UMIC TRIGGER UA YES; Urine Blood Negative (Negative); Urine Ketones Negative (Negative); Urine Protein Negative (Neg-Trace)
[2024-12-16 18:27] LABS: Bacteria Urine None Seen (None Seen); Hyaline Casts Urine 0-2 /LPF (0-2); RBC Urine 0-2 /HPF (0-2); Squamous Epithelial Cell Urine 0-2 /HPF (0-2); WBC Urine 0-5 /HPF (0-5)
[2024-12-16 18:34] LABS: Anion Gap 12 (12-20); Blood Urea Nitrogen 30 mg/dL (9-16); Calcium 9.8 mg/dL (8.4-10.2); Carbon Dioxide 25 mmol/L (22-29); Chloride 107 mmol/L (96-108); Estimated Glomerular Filt Rate 38; Glucose Random 77 mg/dL (60-115); Sodium 139 mmol/L (135-145)
[2024-12-16 19:02] LABS: Creatinine Urine 20.87 mg/dL; Total Protein Urine Random < 7 mg/dL (<12)
== END 2024-12-16 08:46 | disposition home or self-care (01) ==
LOC: HO.HKASLDS 08:45
PROVIDERS: PCP Family Medicine; Visit Provider Internal Medicine Hypertension Specialist
DX: N18.30 Chronic kidney disease, stage 3 unspecified (principal)
CPT/HCPCS: 36415; 80048; 81001; 82570; 84156; 84300

== ENCOUNTER 2025-05-21 09:20 | Outpatient (REF) | payer OTHER, SELFPAY ==
--- OUTSIDE RECORDS SUMMARY | 2025-05-21 10:25 | XMS_ITS | Clinical Summary ---
Author Organization [facility] Address [address] [place] [address] Care Team Providers Care Divorce Lawyer Name Role Phone Naz Marquis Primary Care Provider [phone] Allergies Active Allergy Reactions Criticality Noted Date [...] series) 12/09/2020 11/11/2020, 10/13/2020 Influenza Vaccine (#1) 2025 Hepatitis B Vaccines Aged Out No long er eligible based on patient's age to complete this topic RSV Ped < 20 months Aged Out No longe r eligible based on patient's age to complete this topic Care Teams Divorce Lawyer Relationship Specialty Start Date End Date Naz Marquis [address] [place] [phone] PCP - General Internal Medicine 11/24/21
[2025-05-21 13:13] LABS: Appearance Urine Clear; Glucose Urine UA Negative (Negative); PH 7.0 (5.0-9.0); Specific Gravity - Urine <= 1.005 (1.005-1.025); UMIC TRIGGER UA YES
[2025-05-21 14:12] LABS: Anion Gap 10 (12-20); Blood Urea Nitrogen 28 mg/dL (9-16); Calcium 10.8 mg/dL (8.4-10.2); Carbon Dioxide 31 mmol/L (22-29); Chloride 103 mmol/L (96-108); Estimated Glomerular Filt Rate 40; Potassium 4.3 mmol/L (3.3-5.1); Sodium 140 mmol/L (135-145)
[2025-05-21 14:36] LABS: Total Protein Urine Random < 7 mg/dL (<12)
== END 2025-05-21 09:21 | disposition home or self-care (01) ==
LOC: HO.HKASLDS 09:20
PROVIDERS: PCP Family Medicine; Visit Provider Internal Medicine Hypertension Specialist
DX: N20.0 Calculus of kidney (principal); N18.30 Chronic kidney disease, stage 3 unspecified
CPT/HCPCS: 36415; 80048; 81001; 82570; 84156; 84300

== ENCOUNTER 2025-05-26 08:24 | Outpatient (AMB) | payer OTHER, SELFPAY ==
--- OUTSIDE RECORDS SUMMARY | 2025-05-26 08:39 | XMS_ITS | Clinical Summary ---
[facility] Organization [facility] Address [address] [place] [address] Care Team Providers Care Balance Wheel Screw Hole Tapper Name Role Phone Naz Marquis Primary Care [...] age to complete this topic Care Teams Balance Wheel Screw Hole Tapper Relationship Specialty Start Date End Date Naz Marquis [address] [place] [phone] PCP - General Internal Medicine 11/24/21
--- OUTSIDE RECORDS SUMMARY | 2025-05-26 08:39 | XMS_ITS | Clinical Summary ---
Author Organization [address] Address [address] [place] [phone] Phone Care Team Providers Care Encephalographer Name Role Phone Arash Coelho MD Primary Care Pr ovider Allergies Active Allergy Reactions Criticality Noted Date Comments Morphine Nausea And Vomiting 07/25/2009 Medications timolol (TIMOPTIC) 0.25 % ophthalmic solution Place 1 Drop into both eyes daily. 09/28/19 23 Active upadacitinib (Rinvoq) 15 mg tablet extended release 24 hr Take 15 mg by mouth daily. Active mv-mn/iron/folic acid/herb 190 (VITAMIN D3 COMPLETE ORAL) Take by mouth. Active omega-3 acid ethyl esters (LOVAZA) 1 gram capsule Take 1 capsule (1 g total) by mouth 2 (two) times a day. Active denosumab (PROLIA) 60 mg/mL syringe syringeIndications:Oste oporosis without current pathological fracture, unspecified osteoporosis type Inject 1 mL (60 mg total) under the skin 1 (one) time for 1 dose. 1 mL 12/04/19 25 Active evolocumab (Repatha SureClick) 140 mg/mL pen injector injectionIndications:Pu re hypercholesterolemia Inject 1 mL (140 mg total) under the skin every 14 (fourteen) days. 2 mL 6 01/05/20 25 Active losartan (COZAAR) 50 mg tabletIndications:Prima ry hypertension Take 1 tablet (50 mg total) by mouth 1 (one) time each day. 90 tablet 1 05/19/20 25 Active spironolactone (ALDACTONE) 50 mg tabletIndications:Prima ry hypertension Take 1 tablet (50 mg total) by mouth 1 (one) time each day. 90 tablet 1 05/19/20 25 Active glipiZIDE (GLUCOTROL) 5 mg tabletIndications:Type 2 diabetes mellitus with stage 3a chronic kidney disease, without long-term current use of insulin (CMS/HCC V24, CMS/HCC V28) Take 1 tablet (5 mg total) by mouth 1 (one) time each day. 90 tablet 1 05/19/20 25 Active aspirin 81 mg EC tabletIndications:Perip heral artery disease (CMS/HCC V24) Take 1 tablet (81 mg total) by mouth 1 (one) time each day. 90 each 3 05/19/20 25 026 Active glipiZIDE (GLUCOTROL) 5 mg tabletIndications:Type 2 diabetes mellitus with stage 3a chronic kidney disease, without long-term current use of insulin (CMS/HCC V24, CMS/HCC V28) TAKE ONE TABLET BY MOUTH EVERY DAY 90 tablet 1 11/24/19 25 025 Discontin ued(Reord er) losartan (COZAAR) 50 mg tabletIndications:Prima ry hypertension Take 1 tablet (50 mg total) by mouth 1 (one) time each day. 90 tablet 1 03/01/20 25 025 Discontin ued(Reord er) spironolactone (ALDACTONE) 50 mg tabletIndications:Prima ry hypertension Take 1 tablet (50 mg total) by mouth 1 (one) time each day. 90 tablet 1 03/01/20 25 025 Discontin ued(Reord er) Active Problems Problem Noted Date Diagnosed Date Peripheral artery disease (CMS/HCC V24) 05/19/20 Assessment & Plan (05/19/2025 9:16 AM EDT): Arterial studies are as above Start aspirin daily She Is on repatha due to intolerance to statins Referred to vascular surgery Orders: Ambulatory referral to Vascular Surgery; Future aspirin 81 mg EC tablet; Take 1 tablet (81 mg total) by mouth 1 (one) time each day. Hypertension 05/14/2024 Assessment & Plan (05/19/2025 9:16 AM EDT): Well controlled Continue current meds Orders: losartan (COZAAR) 50 mg tablet; Take 1 tablet (50 mg total) by mouth 1 (one) time each day. spironolactone (ALDACTONE) 50 mg tablet; Take 1 tablet (50 mg total) by mouth 1 (one) time each day. Assessment & Plan (03/01/2025 9:35 AM EDT): BP is slightly elevated than goal today but she notes she has been awake since 2am and is a little stressed. For now she does not want to make any medication adjustments which is reasonable Normal BP at visit with cardiology in November For now continue current meds Orders: losartan (COZAAR) 50 mg tablet; Take 1 tablet (50 mg total) by mouth 1 (one) time each day. spironolactone (ALDACTONE) 50 mg tablet; Take 1 tablet (50 mg total) by mouth 1 (one) time each day. Assessment & Plan (09/02/2024 3:06 PM EST): [...] Overview (05/14/2024): UNTREATED (10/03/23) Assessment & Plan (05/19/2025 9:16 AM EDT): See HPI. She is not interested in sleep medicine evaluation or CPAP treatment Assessment & Plan (03/01/2025 9:35 AM EDT): See HPI. She is not interested in CPAP machine at this time Assessment & Plan (09/02/2024 3:06 PM EST): Follow-up with ENT as scheduled in November. Intolerant to CPAP Rheumatoid arthritis ([facility] V24, [facility] V28) 05/14/2024 Assessment & Plan (05/19/2025 9:16 AM EDT): Continue Upadacitinib 15mg daily Follows with rheumatology- has appt with Dr. Chan on 05/27/25 Assessment & Plan (03/01/2025 9:35 AM EDT): Continue rheumatology follow up Continue Upadacitinib 15mg daily Assessment & Plan (09/02/2024 3:06 PM EST): Continue rheumatology follow-up. Continue Rinvoq 15 mg daily Type 2 diabetes mellitus wit h diabetic microalbuminuria, without long-term current use of insulin ([facility] V24, [facility] V28) 05/14/2024 Assessment & Plan (05/19/2025 9:16 AM EDT): Well controlled Continue glipizide Orders: glipiZIDE (GLUCOTROL) 5 mg tablet; Take 1 tablet (5 mg total) by mouth 1 (one) time each day. Assessment & Plan (03/01/2025 9:35 AM EDT): Well controlled Continue glipizide 5mg daily Orders: Ambulatory referral to Ophthalmology; Future Diabetes Foot Exam Hemoglobin A1c; Future Assessment & Plan (09/02/2024 3:06 PM EST): Continue lifestyle management. Advised to try to increase her exercise. Due for repeat A1c. If still >7, will recommend Jardiance due to her CKD Will update labs Orders: Hemoglobin A1c; Future Comprehensive metabolic panel; Future CKD (chronic kidney disease) stage 3, GFR 30-59 ml/min ([facility] V24, [facility] V28) 10/03/2023 Assessment & Plan (05/19/2025 9:16 AM EDT): Avoid nsaids. Stay well hydrated Follow up with nephrology- Dr. Alston Assessment & Plan (03/01/2025 9:35 AM EDT): Continue nephrology follow up Assessment & Plan (09/02/2024 3:06 PM EST): Will update labs. Continue follow up with nephrology-Dr. Paul Alston, Orders: Comprehensive metabolic panel; Future Vitamin D 1,25 dihydroxy; Future Osteoporosis 02/06/2023 Assessment & Plan (05/19/2025 9:16 AM EDT): Continue prolia Q6 months and endocrinology follow up Assessment & Plan (03/01/2025 9:35 AM EDT): Continue endocrinology follow up Continue on prolia Q6 months She continues on daily vitamin D/ca Assessment & Plan (09/02/2024 3:06 PM EST): Continue follow-up with endocrinology. Still pending Prolia Obesity (BMI 30.0-34.9) 01/25/2023 Assessment & Plan (09/02/2024 3:06 PM EST): Lifestyle counseling provided Glaucoma of both eyes 10/24/2022 Assessment & Plan (05/19/2025 9:16 AM EDT): Continue ophthalmology follow-up. Continue timolol eyedrops daily Assessment & Plan (03/01/2025 9:35 AM EDT): Continue ophthalmology follow up Continue timolol eye drops daily Assessment & Plan (09/02/2024 3:06 PM EST): Continue ophthalmology follow-up and timolol eyedrops daily Hirsutism 11/27/2018 Primary osteoarthritis involving multiple joints 11/06/2018 Hyperlipidemia 10/24/2017 Assessment & Plan (05/19/2025 9:16 AM EDT): Stable Continue repatha every 2 weeks Assessment & Plan (03/01/2025 9:35 AM EDT): Improved Continue repatha every 2 weeks Orders: Lipid panel with reflex to direct LDL; Future Comprehensive metabolic panel; Future Assessment & Plan (09/02/2024 3:06 PM EST): [...] referral to Cardiology; Future Homocysteine, total; Future Resolved Problems Problem Noted Date Diagnosed Date Resolved Date Microalbuminuria 10/03/2023 05/19/2025 Encounters Date Type Department Care Team Description 05/20/2025 Telephone Adult [address] [phone] Arash Coelho MD 05/19/2025 8:30 AM EDT Office Visit Adult [address] [phone] Arash Coelho MD Type 2 diabetes mellitus with stage 3a chronic kidney disease, without long-term current use of insulin (CMS/HCC V24, CMS/HCC V28) (Primary Dx); Primary hypertension; Mixed hyperlipidemia; Stage 3b chronic kidney disease (CMS/HCC V24, CMS/HCC V28); Age-related osteoporosis without current pathological fracture; Rheumatoid arthritis involving multiple sites with positive rheumatoid factor (CMS/HCC V24, CMS/HCC V28); Peripheral artery disease (CMS/HCC V24); Glaucoma of both eyes, unspecified glaucoma type; DONNA (obstructive sleep apnea) 05/19/[address] [phone] Arash Coelho MD 05/18/2025 Results Follow-Up [address] [phone] Arash Coelho MD 05/14/2025 10:00 AM EDT Ancillary Procedure [facility] [address] [place] [address] Decreased pedal pulses 04/27/2025 Telephone Endocrinology - [address] [phone] Uday Hardin MD 03/22/2025 7:36 AM EDT - 03/22/2025 11:59 PM EDT [facility] [address] [phone] Encounter for screening mammogram for malignant neoplasm of breast Discharge Disposition: Home or Self Care 03/22/2025 7:35 AM EDT - 03/22/2025 11:59 PM EDT Hospital Encounter [facility] [address] [place] [phone] Osteoporosis without current pathological fracture, unspecified osteoporosis type Discharge Disposition: Home or Self Care 03/01/2025 9:00 AM EDT Office Visit [address] [phone] Arash Coelho MD Annual wellness visit (Primary Dx); Mixed hyperlipidemia; Type 2 diabetes mellitus with stage 3a chronic kidney disease, without long-term current use of insulin ([facility] V24, [facility] V28); Primary hypertension; Rheumatoid arthritis involving multiple sites with positive rheumatoid factor ([facility] V24, [facility] V28); Age-related osteoporosis without current pathological fracture; Stage 3a chronic kidney disease ([facility] V24, [facility] V28); DONNA (obstructive sleep apnea); Glaucoma of both eyes, unspecified glaucoma type; Decreased pedal pulses from Last 3 Months Immunizations Immunization Administration Dates Next Due Moderna SARS-CoV-2 COVID-19, mRNA, LNP-S, preservative free 11/11/2020,10/13/2020 Td Tetanus diptheria (Tdvax) 7yo and older 04/04 Surgical History Surgery Date Site/Laterality Comments HYSTERECTOMY 1986 PROCEDURE: HISTORICAL HYSTERECTOMY; COMMENT: hx cervical CA LITHOTRIPSY PROCEDURE: HISTORICAL LITHOTRIPSY; COMMENT: 1998, 2012, 2018 ABDOMINAL SURGERY 2008 PROCEDURE: HISTORICAL ABDOMINAL SURGERY; COMMENT: For diverticulitis OTHER SURGICAL HISTORY 2011 PROCEDURE: ME COLECTOMY PARTIAL W/ANASTOMOSIS OTHER SURGICAL HISTORY 05/20/2019 PROCEDURE: ---- OTHER ----; COMMENT: Cathi. Ureteral stent placement LITHOTRIPSY 06/2019 Left PROCEDURE: HISTORICAL LITHOTRIPSY; COMMENT: Wason LITHOTRIPSY 07/2019 Right PROCEDURE: HISTORICAL LITHOTRIPSY; COMMENT: Wason Medical History Medical History Date Comments Hypertension DX:Hypertension Rheumatoid arthritis ([facility]/ C V24, [facility] V28) DX:Rheumatoid arthritis (HCC ); COMMENT: Ez DONNA (obstructive sleep apnea) DX :DONNA (obstructive sleep apnea) Nephrolithiasis DX:Nephrolithias is; COMMENT: Jones Hyperlipidemia 10/24/2017 DX:Hyperlipidemi a Diabetes mellitus type 2, uncomplicated ([facility] V24, [facility] V28) DX:Diabetes mellitus type 2, uncomplicated ([facility]) History of cervical cancer DX:Hi story of cervical cancer; COMMENT: s/p hysterectomy Primary osteoarthritis invol ving multiple joints 11/06/2018 DX:Primary osteoarthritis in volving multiple joints History of diverticulitis of colon DX:History of diverticulitis of colon Osteopenia DX:Osteopenia Family History Medical History Relation Name Comments Other: CAD Father [place], at age 59 Stroke Maternal Grandmother Hypertension Mother Breast cancer Sister 70 Other: Substance abuse Sister Relation Name Status [...] for your loved ones. For example, child and family services worker or elderly care for an older adult? [...] Date Recorded What is your living situation? Unrecognized valu e 10/11/2024 Comments No Sex and Gender Information Value Date Recorded Sex Assigned at Not on file Legal Sex Female 1:47 PM EST Gender Identity Not on file Sexual Orientation Not on file Obstetrics History Para Term AB IAB SAB Ectopic Multiple Livin g Live Births 2 Last Filed Vital Signs Vital Sign Reading Time Taken Comments Blood Pressure 104/62 05/19/2025 8:26 AM EDT Pulse 78 05/19/2025 8:26 AM EDT Temperature 36.9 C (98.4 F) 05/19/2025 8:26 AM EDT Respiratory Rate 15 05/19/2025 8:26 AM EDT Oxygen Saturation 95% 05/19/2025 8:26 AM EDT Inhaled Oxygen Concentration - - Weight 92 kg (202 lb 12.8 oz) 05/19/2025 8:26 AM EDT Height 162.6 cm (5' 4 ) 05/19/2025 8:26 AM EDT Body Mass Index 34.81 05/19/2025 8:26 AM EDT Plan of Treatment Upcoming Encounters Date Type Department Care Team (Late st Contact Info) Description 06/07/2025 9:30 AM EST Office Visit [address] [phone] Uday Hardin MD [address] [place] [address] 08/20/2025 8:30 AM EST Office Visit Adult Medicine [address] [phone] Sudha Urias PA [address] [place] [address] Health Maintenance Due Date Last Done Comments Diabetes: Blood Sugar Control Test (HGBA1C) 08/27/2025 02/24/2025, 09/02/2024, 02/21/2024, Additional history exists Social Influencers of Health Screening 10/11/2025 10/11/2024 Diabetes: Annual Urine Albumin-Creatinine Ratio (uACR) 02/24/2026 02/24/2025, 02/14/2024 Diabetes: Annual GFR (Glomerular Filtration Rate) 02/24/2026 02/24/2025, 12/18/2024, 09/02/2024, Additional history exists Hypertension/CHF/CAD Annual BMP Blood Test 02/24/2026 02/24/2025, 12/18/2024, 09/02/2024, Additional history exists Diabetes: Annual Foot Exam 03/01/2026 03/01/2025, Medicare Annual Wellness Visit 03/01/2026 03/01/2025, 02/21/2024 Diabetes: Annual Retina Eye Exam 04/13/2026 04/13/2025, 09/29/2023 Falls Risk Assessment 05/19/2026 05/19/2025 , 03/01/2025, 02/21/2024 Breast Cancer Screening 03/22/2027 03/22/20, 09/13/2023, 01/28/2023 Cholesterol Screening (Lipid Panel) 02/24/2030 02/24/2025, 09/02/2024, 02/14/2024, Additional history exists Colorectal Cancer Screening: Colonoscopy 10/21/2034 10/21/2024, 07/04/2017 Osteoporosis Screening (Bone Density Screening) 03/22/2035 03/22/2025, 01/28/2023, 10/19/2019 DTaP,Tdap,and Td Vaccines Discontinued 04/04/2006 COVID-19 Vaccine Discontinued 07/05/2021, 04/2021, 10/13/2020 Hepatitis C Screening Completed 01/04/2023 Depression Screening Completed 05/13/2025 HIB Vaccines Aged Out No longer eligi [...] Procedure Name Priority Date/Time Associated Diagnosis Comments VAS US DUPLEX LOWER EXT ARTERIES BILAT WITH IRMA Routine 05/14/2025 10:27 AM EDT Decreased pedal pulses MG MAMMO DIGITAL SCREENING W RAMON BILAT Routine 03/22/2025 8:13 AM EDT Encounter for screening mammogram for malignant neoplasm of breast BD BONE DENSITY DXA AXIAL SKELETON Routine 03/22/2025 8:05 AM EDT Osteoporosis without current pathological fracture, unspecified osteoporosis type CALCIUM Routine 02/24/2025 7:39 AM EDT Osteoporosis without current pathological fracture, unspecified osteoporosis type VITAMIN D 25 HYDROXY Routine 02/24/2025 7:39 AM EDT Osteoporosis without current pathological fracture, unspecified osteoporosis type BUN Routine 02/24/2025 7:39 AM EDT Osteoporosis without current pathological fracture, unspecified osteoporosis type CREATININE, SERUM Routine 02/24/2025 7:3 9 AM EDT Osteoporosis without current pathological fracture, unspecified osteoporosis type HEMOGLOBIN A1C Routine 02/24/2025 7:39 AM EDT Type 2 diabetes mellitus with stage 3a chronic kidney disease, with long-term current use of insulin ([facility] V24, [facility] V28) MICROALBUMIN CREATININE URINE RATIO Routine 02/24/2025 7:39 AM EDT Type 2 diabetes mellitus with stage 3a chronic kidney disease, with long-term current use of insulin ([facility] V24, [facility] V28) LIPID PANEL WITH REFLEX TO DIRECT LDL Routine 02/24/2025 7:39 AM EDT Mixed hyperlipidemia COLONOSCOPY Routine 10/21/2024 3:59 PM EDT DIABETES FOOT EXAM Routine 02/21/2024 DIABETES EYE EXAM Routine 09/29/2023 HEPATITIS C SCREENING Routine 01/04/2023 from Last 3 Months or Most Recently Relevant to Health Maintenance Results * Vascular US duplex lower extremity arteries bilateral with IRMA (05/14/2025 10:27 AM EDT) Left Dist External Iliac PSV 67 cm/s CV VAS LAB Left Prox External Iliac PSV 108 cm/s CV VAS LAB Left AT dist sys PSV 60 cm/s CV VAS LAB Left AT mid sys PSV 48 cm/s CV VAS LAB Left AT prox sys PSV 52 cm/s CV VAS LAB Left ACIDITY TESTER prox sys PSV 87 cm/s CV VAS LAB Left mid peroneal sys PSV 49 cm/s CV VAS LAB Left popliteal dist sys PSV 54 cm/s CV VAS LAB Left popliteal prox sys PSV 72 cm/s CV VAS LAB Left PT dist sys PSV 76 cm/s CV VAS LAB Left PT mid sys PSV 79 cm/s CV VAS LAB Left PT prox sys PSV 44 cm/s CV VAS LAB Left super femoral dist sys PSV 92 cm/s CV VAS LAB Left super femoral mid sys PSV 120 cm/s CV VAS LAB Left super femoral prox sys PSV 102 cm/s CV VAS LAB Right Dist External Iliac PSV 89 cm/s CV VAS LAB Right Prox External Iliac PSV 113 cm/s CV VAS LAB Right AT dist sys PSV 66 cm/s CV VAS LAB Right AT mid sys PSV 66 cm/s CV VAS LAB Right AT prox sys PSV 62 cm/s CV VAS LAB Right ACIDITY TESTER prox sys PSV 69 cm/s CV VAS LAB Right mid peroneal sys PSV 66 cm/s CV VAS LAB Right popliteal dist sys PSV 71 cm/s CV VAS LAB Right popliteal prox sys PSV 68 cm/s CV VAS LAB Right PT dist sys PSV 44 cm/s CV VAS LAB Right PT mid sys PSV 71 cm/s CV VAS LAB Right PT prox sys PSV 69 cm/s CV VAS LAB Right super femoral dist sys PSV 102 cm/s CV VAS LAB Right super femoral mid sys PSV 135 cm/s CV VAS LAB Right super femoral prox sys PSV 104 cm/s CV VAS LAB Right profunda sys PSV 65 cm/s CV VAS LAB Left profunda sys PSV 89 cm/s CV VAS LAB Right arm BP 125 mmHg CV V[facility] Left arm BP 142 mmHg CV [facility] Right posterior tibial 132 mmHg CV VAS LAB Right Dorsalis Pedis 122 mmHg CV VAS LAB Right IRMA 0.93 CV VAS LAB Left posterior tibial 142 mmHg CV VAS LAB Left Dorsalis Pedis 125 mmHg CV VAS LAB Left IRMA 1.00 CV VAS LAB Anatomical Region Laterality Modality Vascular, Abdomen Ultrasound Narrative 05/17/2025 2:16 PM EDT Right: The IRMA is 0.93 indicating borderline PAD. Normal pulse volume waveform at the right ankle. Normal amplitude PPG waveform in the digit. There is mild atherosclerotic palque in the right lower extremity arteries. There is no significant stenosis. 3-vessel runoff is noted in the right calf. Left: The IRMA is 1.0 which is normal. Normal pulse volume waveform at the left ankle. Normal amplitude PPG waveform in the digit. There is mild atherosclerotic palque in the left lower extremity arteries. There is no significant stenosis. 3-vessel runoff is noted in the left calf. Right IRMA Right BP= 125/64 Left IRMA Left BP= 142/61 Right Lower Arterial Duplex The distal external iliac artery has triphasic flow. The common femoral artery has biphasic flow. The profunda femoris artery has biphasic flow. The proximal superficial femoral artery has triphasic flow. The mid superficial femoral artery has biphasic flow. The distal superficial femoral artery has biphasic flow. The popliteal artery has biphasic flow. The anterior tibial artery has biphasic flow. The posterior tibial artery has biphasic flow. The mid peroneal artery has biphasic flow. Left Lower Arterial Duplex The distal external iliac artery has triphasic flow. The common femoral artery has triphasic flow. The profunda femoris artery has biphasic flow. The superficial femoral artery has triphasic flow. The popliteal artery has biphasic flow. The anterior tibial artery has biphasic flow. The posterior tibial artery has biphasic flow. The mid peroneal artery has biphasic flow. Product Management Specialist Details A covrarubias scale, color and doppler analysis ultrasound was performed. During the study longitudinal views were obtained. Pulsed wave doppler was performed. Arash Coelho MD VASCULAR PROC EDURES Final Result * MG Mammo Digital Screening w Ramon bilat (03/22/2025 8:13 AM EDT) Anatomical Region Laterality Modality Breast Bilateral Mammography 03/22/2025 8:32 AM EDT Impressions 03/22/2025 8:37 AM EDT No mammographic evidence of malignancy. A negative mammogram in the presence of a clinically suspicious palpable abnormality does not preclude the possibility of malignancy or alter the indications for biopsy. PQRI CPT II 3342F Code 89721, 29565 PQRI 225 CPT II 7025F TISSUE DENSITY: The breasts are almost entirely fatty. (BI-RADS Category A) IMPRESSION: Benign. BI-RADS CATEGORY: 2 - BENIGN RECOMMENDATION: Screening bilateral mammogram is recommended in 1 year. Mammo Location: [facility], [address] [place] [address] -------- FINAL REPORT -------- Dictated By: Juan Pablo Alcocer Dictated Date: 03/22/2025 08:32 ET Assigned Physician: Juan Pablo Alcocer Reviewed and Electronically Signed By: Juan Pablo Alcocer Signed Date: 03/22/2025 08:37 ET Workstation ID: [id number] Transcribed By: Self Edit Transcribed Date: 03/22/2025 08:32 ET Narrative 03/22/2025 8:37 AM EDT CLINICAL: The patient is a 74 years Female presenting for routine screening mammography. COMPARISON: Most recently 02/19/2024 and most remotely 01/17/2017. TECHNIQUE: Full-field digital mammography of the breasts bilaterally consisting of tomosynthesis in MLO and CC projection is performed in the [employer] 2000-D unit. Computer aided detection utilizing the [employer] system was utilized. FINDINGS: The breasts are again seen to be largely fatty replaced. Scattered benign tissue asymmetries, including a 9 mm diameter nodule in the upper-outer quadrant of the right breast, remain stable and are therefore again regarded as being benign. There is no suspicious cluster of microcalcifications, suspicious mass, or area of architectural distortion. There is no skin thickening or nipple retraction. Procedure Note Juan Pablo Alcocer MD - 03/22/2025 CLINICAL: The patient is a 74 years Female presenting for routinescreening mammography. COMPARISON: Most recently 02/19/2024 and most remotely 01/17/2017. TECHNIQUE: Full-field digital mammography of the breasts bilaterallyconsisting of tomosynthesis in MLO and CC projection is performed in theGENERAL [employer]ICAL [employer]he 2000-D unit. Computer aided detection utilizing the [employer] was utilized. FINDINGS: The breasts are again seen to be largely fatty replaced.Scattered benign tissue asymmetries, including a 9 mm diameter nodule inthe upper-outer quadrant of the right breast, remain stable and aretherefore again regarded as being benign. There is no suspicious clusterof microcalcifications, suspicious mass, or area of architecturaldistortion. There is no skin thickening or nipple retraction. IMPRESSION: No mammographic evidence of malignancy. A negative mammogram in the presence of a clinically suspicious palpableabnormality does not preclude the possibility of malignancy or alter theindications for biopsy. PQRI CPT II 3342F Code 76502, 46988 PQRI 225 CPT II 7025F TISSUE DENSITY: The breasts are almost entirely fatty. (BI-RADS CategoryA) IMPRESSION: Benign. BI-RADS CATEGORY: 2 - BENIGN RECOMMENDATION: Screening bilateral mammogram is recommended in 1 year. Mammo Location: [facility], [address] [place] [address] -------- FINAL REPORT -------- Dictated By: Juan Pablo Alcocer Dictated Date: 03/22/2025 08:32 ET Assigned Physician: Juan Pablo Alcocer Reviewed and Electronically Signed By: Juan Pablo Alcocer Signed Date: 03/22/2025 08:37 ET Workstation ID: [id number] Transcribed By: Self Edit Transcribed Date: 03/22/2025 08:32 ET us Arash Coelho MD [facility] BI PROCEDURE S Final Result * BD Bone Density DXA Axial Skeleton (03/22/2025 8:05 AM EDT) Anatomical Region Laterality Modality Wrist, Hip, L-spine Bone Densito metry 03/22/2025 10:3 8 AM EDT Impressions 03/22/2025 10:40 AM EDT 1. Osteoporosis. There has been a decrease of 2.6% in bone mineral density in the lumbar spine since the prior examination of 01/28/2023. There has been a decrease of 0.6% in bone mineral density in the right femur and an increase of 3.5% in bone mineral density in the left femur. 2. FRAX analysis yields a 10-year probability of major osteoporotic fracture of 31.6% and a 10-year probability of hip fracture of 10.7%. Code 25036 -------- FINAL REPORT -------- Dictated By: Juan Pablo Alcocer Dictated Date: 03/22/2025 10:38 ET Assigned Physician: Juan Pablo Alcocer Reviewed and Electronically Signed By: Juan Pablo Alcocer Signed Date: 03/22/2025 10:40 ET Workstation ID: [id number] Transcribed By: Self Edit Transcribed Date: 03/22/2025 10:38 ET Narrative 03/22/2025 10:40 AM EDT HISTORY: The patient is a 74-year-old postmenopausal female with clinical concern for metabolic bone disease. FINDINGS: Dual energy x-ray absorptiometry of the lumbar spine and femurs is performed. The mean bone mineral density at L1-L4 (with the exclusion of L2) is 1.016 gm/cm2 which is 87% of that of young normals and 95% of that of age matched controls. This yields a T-score of -1.3 and a Z-score of -0.4 which is diagnostic of osteopenia. The mean bone mineral density of the femurs bilaterally is 0.779 gm/cm2 which is 77% of that of young normals and 89% of that of age matched controls. This yields a T-score of -1.8 and a Z-score of 0.8 which is diagnostic of osteopenia. However, the T-score of the right femoral neck is -2.7 and that of the left femoral neck is -2.9 which is diagnostic of osteoporosis. Procedure Note Juan Pablo Alcocer MD - 03/22/2025 HISTORY: The patient is a 74-year-old postmenopausal female with clinicalconcern for metabolic bone disease. FINDINGS: Dual energy x-ray absorptiometry of the lumbar spine and femursis performed. The mean bone mineral density at L1-L4 (with the exclusionof L2) is 1.016 gm/cm2 which is 87% of that of young normals and 95% ofthat of age matched controls. This yields a T-score of -1.3 and a Z-scoreof -0.4 which is diagnostic of osteopenia. The mean bone mineral density of the femurs bilaterally is 0.779 gm/il3ktqam is 77% of that of young normals and 89% of that of age matchedcontrols. This yields a T-score of -1.8 and a Z-score of 0.8 which isdiagnostic of osteopenia. However, the T-score of the right femoral neckis -2.7 and that of the left femoral neck is - 2.9 which is diagnostic ofosteoporosis. IMPRESSION: 1. Osteoporosis. There has been a decrease of 2.6% in bone mineraldensity in the lumbar spine since the prior examination of 01/28/2023.There has been a decrease of 0.6% in bone mineral density in the rightfemur and an increase of 3.5% in bone mineral density in the left femur. 2. FRAX analysis yields a 10-year probability of major osteoporoticfracture of 31.6% and a 10-year probability of hip fracture of 10.7%. Code 86081 -------- FINAL REPORT -------- Dictated By: Juan Pablo Alcocer Dictated Date: 03/22/2025 10:38 ET Assigned Physician: Juan Pablo Alcocer Reviewed and Electronically Signed By: Juan Pablo Alcocer Signed Date: 03/22/2025 10:40 ET Workstation ID: [id number] Transcribed By: Self Edit Transcribed Date: 03/22/2025 10:38 ET Arash Coelho MD [facility] DXA PROCEDUR ES Final Result * Lipid panel with reflex to direct LDL (02/24/2025 7:39 AM EDT) Cholesterol 166 0 - 200 mg/dL LAB CHEMISTRY METHOD 02/24/2025 10:[address] [facility] Triglycerides 67 0 - 150 mg/dL LAB CHEMISTRY METHOD 02/24/2025 10:[address] [facility] HDL 68 >=40 mg/dL LAB CHEMISTRY METHOD 02/24/2025 10:[address] [facility] LDL Calculated 85 0 - 100 mg/dL LAB CHEMISTRY METHOD 02/24/2025 10:41 AM [facility] VLDL Cholesterol Hector 13.4 mg/dL LAB CHEMISTRY METHOD 02/24/2025 10:41 AM [facility] Non HDL Chol. (LDL+VLDL) 98 <145 mg/dL LAB CHEMISTRY METHOD 02/24/2025 10:41 AM [facility] Chol/HDL Ratio 2.4 0.0 - 4.4 LAB CHEMISTRY METHOD 02/24/2025 10:41 AM [facility] Blood Venous blood specimen / Unknown Venipuncture / Unknown 02/24/2025 7:39 AM EDT 02/24/2025 7:39 AM EDT Arash Coelho MD LAB BLOOD ORDERA BLES Final Result [facility] [address] [place] [address], [place] [phone] * Microalbumin creatinine urine ratio (02/24/2025 7:39 AM EDT) Creatinine, Urine 133.0 mg/dL LAB CHEMISTRY METHOD 02/24/2025 10:[address] [facility] Microalb, Ur 8.9 0.0 - 29.0 mg/L LAB CHEMISTRY METHOD 02/24/2025 10:[address] [facility] Microalb/Creat Ratio 7 <30 mg/g creat LAB CHEMISTRY METHOD 02/24/2025 10:[address] [facility] Urine Urine specimen obtained by clean catch procedure / Unknown Non-blood Collection / Unknown 02/24/2025 7:39 AM EDT 02/24/2025 7:39 AM EDT Arash Coelho MD LAB URINE ORDERA BLES Final Result Performing Organization Address City/[facility]/ZIP Co de Phone Number [facility] [address] [place] [address], [place] [phone] * (ABNORMAL) Creatinine (02/24/2025 7:39 AM EDT) Creatinine 1.52(H) 0.50 - 1.10 mg/dL LAB CHEMISTRY METHOD 02/24/2025 10:[address] [facility] eGFR 36(L) >=60 mL/min/1. 73m2 LAB CHEMISTRY METHOD 02/24/2025 10:[address] [facility] Comment:Calculation based on the Chronic Kidney Disease Epidemiology Collaboration (CKD-EPI) equation refit without adjustment for race. Blood Venous blood specimen / Unknown Venipuncture / Unknown 02/24/2025 7:39 AM EDT 02/24/2025 7:39 AM EDT Uday Hardin MD LAB BLOOD ORDERABLES Final Resul t [facility] [address] [place] [address], [place] [phone] * Vitamin D 25 hydroxy (02/24/2025 7:39 AM EDT) Vit D, 25-Hydroxy 76.2 30.0 - 80.0 ng/mL LAB CHEMISTRY METHOD 02/24/2025 11:[address] [facility] Blood Venous blood specimen / Unknown Venipuncture / Unknown 02/24/2025 7:39 AM EDT 02/24/2025 7:39 AM EDT Uday Hardin MD LAB BLOOD ORDERABLES Final Resul t [facility] [address] [place] [address], [place] [phone] * (ABNORMAL) BUN (02/24/2025 7:39 AM EDT) BUN 26(H) 5 - 25 mg/dL LAB CHEMISTRY METHOD 02/24/2025 10:[address] [facility] Blood Venous blood specimen / Unknown Venipuncture / Unknown 02/24/2025 7:39 AM EDT 02/24/2025 7:39 AM EDT Uday Hardin MD LAB BLOOD ORDERABLES Final Resul t Performing Organization Address City/[facility]/ZIP Co de Phone Number [facility] [address] [place] [address], [place] [phone] * (ABNORMAL) Hemoglobin A1c (02/24/2025 7:39 AM EDT) Hemoglobin A1C 6.8(H) <6.5 % LAB CHEMISTRY METHOD 02/24/2025 11:[address] [facility] Mean Bld Glu Estim. 148 mg/dL LAB CHEMISTRY METHOD 02/24/2025 11:[address] [facility] Blood Venous blood specimen / Unknown Venipuncture / Unknown 02/24/2025 7:39 AM EDT 02/24/2025 7:39 AM EDT Arash Coelho MD LAB BLOOD ORDERA BLES Final Result Performing Organization Address [facility]/ZIP Co de Phone Number [facility] [address] [place] [address], * Calcium (02/24/2025 7:39 AM EDT) [facility] Calcium 9.4 8.5 - 10.5 mg/dL LAB CHEMISTRY METHOD 02/24/2025 10:[address] [facility] Blood Venous blood specimen / Unknown Venipuncture / Unknown 02/24/2025 7:39 AM EDT 02/24/2025 7:39 AM EDT Uday Hardin MD LAB BLOOD ORDERABLES Final Resul t Performing Organization Address [facility] Co de Phone Number [facility] [address] [place] [address], * COLONOSCOPY (10/21/2024 3:59 PM EDT) Anatomical Region Laterality Modality Endoscopy [facility]~PROCEDURE ORDERABLES F inal Result * Diabetes Foot Exam (02/21/2024) [facility] Diabetes: Annual Foot Exam abstracted Historical [facility]TENANCE Final Result * Diabetes Eye Exam (09/29/2023) [facility] Diabetes: Annual Retina Eye Exam abstracted Historical [facility]TE[facility] Final Result * Hepatitis C Screening (01/04/2023) [facility] Hepatitis C Screening abstracted Historical [facility] MAINTENA[facility]CE Final Result from Last 3 Months or Most Recently Relevant to Health Maintenance Insurance [employer] Care Teams Encephalographer Relationship Specialty Start Date End Date Arash Coelho MD [address] [place] [phone] PCP - General 10/01/22
--- OUTSIDE RECORDS SUMMARY | 2025-05-26 08:39 | XMS_ITS | Encounter Summary ---
Author Organization [facility] Address [address] [place] [address] Care Team Providers Care Health Tech Name Role Phone Arash Coelho MD Primary Care Pr ovider Reason for Referral * Consultation (Routine) - Pending Review Specialty Diagnoses / Procedures Referred By Joycelyn solares Referred To Contact Rheumatology Diagnoses Osteoporosis, post-menopausal Arash Coelho MD [address] [place] [phone] Phone: tel: fax: Karissa James MD [address] [place] [address], [facility] [address] [place] [address] Phone: tel: fax: Referral ID Status Reason Start Date Expiration Date Visits Requested Visits Authorized [id number] Pending Review Specialty Services Required 05/19/2026 1 1 Reason for Visit * Reason Onset Date Comments Referral 05/19/2025 Encounter Details Date Type Department Care Team (Late st Contact Info) Description 05/19/2025 Telephone Adult Medicine [address] [place] [phone] Arash Coelho MD [address] [place], [place] Social History Tobacco Use Types Packs/Day Years Used Date Smoking Tobacco: Former Cigarettes 2 33 0 08/05/1964 - 08/05/1997 Smokeless Tobacco: Never Alcohol Use Standard Drinks/Week Comments Never 0 [...] care for your loved ones. 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 [...] as of this encounter Progress Notes * Lynn Lobo - 05/19/2025 1:24 PM EDT Referral Request: What insurance does the patient have today? [place] [id number] Referrals cannot be processed if the insurance is not accurate. If the insurance listed above in red is NO BILLING INFORMATION FOUND FOR THIS ENCOUTNER The patients correct insurance must be obtained and registered in [facility] or their referral can not be processed. Who is calling to request this referral? [facility] If the caller is not the patient, what is their name? Ask the patient WHO referred them to this specialty: Patient referred herslf per [facility] FIRST and LAST NAME of SPECIALIST PATIENT is seeing: Kassandra Chan What specialty is this? Rheumatology DIAGNOSIS Patient is being seen for (Not a body part or a procedure): M81.0 Have you seen this SPECIALIST for this PROBLEM/DX before? If YES, when? No Have you checked REVIEW or the APPT DESK to see if this referral has already been done or has visits left? yes Is this visit: Initial Visit Address of Specialist: [place] [address] Phone # of Specialist: [phone] Fax #: (if applicable): [phone] Does patient have an appointment scheduled?: yes Date of appointment- (including a retro-request): 05/27/25 Is this appointment related to: Not MVA, worker compensation, or surgery related documented in this encounter Plan of Treatment Upcoming Encounters Date Type Department Care Team (Late st Contact Info) Description 06/07/2025 9:30 AM EST Office Visit [address] [phone] Uday Hardin MD [address] [place] [address] 08/20/2025 8:30 AM EST Office Visit Adult Medicine [facility] [address] [phone] Sudha Urias PA [address] [place], [place] [phone] Scheduled Referrals Name Type Priority Associated Diagnoses Order Schedule Ambulatory referral to Rheumatology Outpatient Referral Routine Osteoporosis, post-menopausal 1 Occurrences starting 05/19/2025 until 05/19/2026 documented as of this encounter Visit Diagnoses Diagnosis Osteoporosis, post-menopausal- Primary Senile osteoporosis documented in this encounter Additional Health Concerns Assessment Noted Time PHQ-9 Depression Total Score: 0 03/01/20 9:03 AM EDT documented as of this encounter Care Teams Health Tech Relationship Specialty Start Date End Date Arash Coelho MD [address] [place] [address] PCP - General 10/01/22 documented as of this encounter
--- OUTSIDE RECORDS SUMMARY | 2025-05-26 08:39 | XMS_ITS | Encounter Summary ---
Author Organization [facility] Address [address] [place] [address] Care Team Providers Care Interventional Physician Name Role Phone Arash Coelho MD Primary Care Pr ovider Encounter Details Date Type Department Care Team (Late st Contact Info) Description 05/18/2025 Results Follow-Up Adult Medicine [address] [phone] Arash Coelho MD [address] [place] [address] Social History Tobacco Use Types Packs/Day Years [...] for your loved ones. For example, child protective investigator or elderly care for an older adult? [...] on file documented as of this encounter Plan of Treatment Upcoming Encounters Date Type Department Care Team ([facility] st Contact Info) Description 06/07/2025 9:30 AM EST Office Visit Endocrinology [address], [place] [phone] Uday Hardin MD [address] [place] [address] 08/20/2025 8:30 AM EST Office Visit Adult Medicine [address] [phone] Sudha Urias PA [address] [place] [address] documented as of this encounter Visit Diagnoses Not on filedocumented in this encounter Additional Health Concerns Assessment Noted Time PHQ-9 Depression Total Score: 0 03/01/20 25 9:03 AM EDT documented as of this encounter Care Teams Interventional Physician Relationship Specialty Start Date End Date Arash Coelho MD [address] [place] [address] PCP - General 10/01/22 documented as of this encounter
--- OUTSIDE RECORDS SUMMARY | 2025-05-26 08:39 | XMS_ITS | Encounter Summary ---
Author Organization [facility] Address [address] [place] [phone] Phone Care Team Providers Care Correspondence School Teacher Name Role Phone Arash Coelho MD Primary Care Pr ovider Reason for Visit * Reason Onset Date Comments Appointment 04/14/2025 Encounter Details Date Type Department Care Team (Late st Contact Info) Description 04/14/2025 Telephone [facility] Rheumatology [address] [place] [address] Arash Coelho MD [address] [place] [phone] Appointment Social History Tobacco Use Types Packs/Day Years Used Date Smoking Tobacco: Former Smokeless Tobacco: Never Alcohol Use Standard Drinks/Week Comments Not Currently 0 (1 standard drink = 0.6 oz pur e alcohol) Education Answer Date Recorded Are you interested in more education? Not on curtis e 03/11/2023 Are you concerned about learning? Not on file 03/11/2023 No 03/11/2023 No 03/11/2023 Digital Access Answer Date Recorded No 03/11/2023 No 03/11/2023 Reliable internet access at home? Not on file 03/11/2023 Device with a working camera? Not on file Comments Unknown Sex and Gender Information Value Date Recorded Sex Assigned at Not on file Legal Sex Female 3:26 PM EDT Gender Identity Not on file Sexual Orientation Not on file documented as of this encounter Progress Notes * Guerda Melchor - 05/25/2025 2:40 PM EDT Pt is scheduled * Blossom Zepeda - 05/14/2025 12:05 PM EDT Pt called said she received call back to RS appt please call pt Central Support Gas Meter Installer (Please do not reply to this user; this inbox is not monitored.) Thank you. * Nate Wolf - 04/14/2025 8:38 AM EDT Pt called in to schedule with a new provider, please contact and advise Central Support Gas Meter Installer (Please do not reply to this user; this inbox is not monitored.) Thank you. documented in this encounter Plan of Treatment Upcoming Encounters Date Type Department Care Team (Late st Contact Info) Description 05/27/2025 8:00 AM EDT Office Visit [facility] Rheumatology [address] [place] [phone] Kassandra Chan MD [address] [place] [address], [address] [place] [address] documented as of this encounter Visit Diagnoses Not on filedocumented in this encounter Care Teams Correspondence School Teacher Relationship Specialty Start Date End Date Arash Coelho MD PCP - General Family Medicine 01/30/23 documented as of this encounter Additional Source Comments The information contained in this document represents components of the legal health record. It is not the complete legal health record.[facility]
--- OUTSIDE RECORDS SUMMARY | 2025-05-26 08:39 | XMS_ITS | Clinical Summary ---
Author Organization [facility] Address [address] [place], [place] [id number] Phone Care Team Providers Care Supervisor [employer] Name Role Phone Arash Coelho MD Primary Care Pr ovider Allergies Active Allergy Reactions Criticality Noted Date Comments Morphine Nausea And Vomiting, Nausea and/or Vomiting 07/25/2009 Medications losartan (COZAAR) 50 MG tablet Take 1 tablet by mouth every morning. 3 Active spironolactone (ALDACTONE) 50 MG tablet Take 1 tablet by mouth every morning. 3 Active timolol (TIMOPTIC) 0.25 % ophthalmic solution INSTILL 1 DROP TO BOTH EYES ONCE DAILY 3 Active REPATHA SURECLICK 140 mg/mL PnIj subcutaneous pen injector Inject 140 mg under the skin every 14 (fourteen) days. 5 Active glipiZIDE (GLUCOTROL) 5 MG tablet Take 5 mg by mouth daily. 5 Active upadacitinib (RINVOQ) 15 mg ER 24 hr tabletIndications :Rheumatoid arthritis involving multiple sites with positive rheumatoid factor Take 1 tablet (15 mg total) by mouth daily. 90 tablet 2 5 Active Active Problems Problem Noted Date Diagnosed Date Dysuria 08/13/2023 Assessment & Plan (08/13/2023 10:26 AM EST): She has had 3 urinary tract infections in the last few months. At today's visit she does complain of dysuria frequency and burning with urination. Will order a urinalysis with reflex culture, and consider course of antibiotics. She will hold her Rinvoq for about 5 days while she is on treatment for the UTI. Rheumatoid arthritis involvi ng multiple sites with positive rheumatoid factor 04/09/2023 Assessment & Plan (02/12/2024 9:16 AM EDT): Seropositive rheumatoid arthritis well-controlled on daily Rinvoq with no active synovitis or swelling. Sent her for some baseline labs today. Assessment & Plan (08/13/2023 10:25 AM EST): Seropositive rheumatoid arthritis well-controlled on daily Rinvoq with no joint swelling or pain. I have asked her to hold Rinvoq for about 5 days while she is on antibiotic treatment for her urinary tract infection. Sent her for some baseline labs today. Assessment & Plan (04/09/2023 9:09 AM EDT): Seropositive rheumatoid arthritis well-controlled on daily Rinvoq 15 mg, which she gets free from [employer] The application was just renewed and she is due for a shipment sometime in this week. She knows to hold Rinvoq should she develop an infection. Primary osteoarthritis involving multiple joints 04/09/2023 Assessment & Plan (02/12/2024 9:17 AM EDT): Osteoarthritis in multiple joints with no swelling. Her left knee is occasionally bothersome. She can safely take Tylenol 650 mg as needed. Assessment & Plan (08/13/2023 10:25 AM EST): Degenerative arthritis in multiple areas without swelling. She can safely take Tylenol 650 mg as needed for pain. Assessment & Plan (04/09/2023 9:10 AM EDT): Degenerative osteoarthritis in multiple joints only exacerbated with prolonged activity. She takes dual action Advil and Tylenol as needed. Encounters Date Type Department Care Team Description 04/14/2025 Telephone [facility] Rheumatology [address] [place], [place] [address] Arash Coelho, MD Appointment from Last 3 Months Family History Medical History Relation Comments Heart attack Daughter Heart attack Father Heart attack Mother Relation Status Comments Daughter Alive Father Mother Son Alive Social History Tobacco Use Types Packs/Day Years Used Date Smoking Tobacco: Former Smokeless Tobacco: Never Tobacco Cessation:Counseling Given: Not Answered Alcohol Use Standard Drinks/Week Comments Not Currently [...] on file Sexual Orientation Not on file Last Filed Vital Signs Vital Sign Reading Time Taken Comments Blood Pressure 116/72 12/18/2024 7:59 AM EDT Pulse 70 12/18/2024 7:59 AM EDT Temperature - - Respiratory Rate 16 04/09/2023 8:16 AM EDT Oxygen Saturation 93% 12/18/2024 7:59 AM EDT Inhaled Oxygen Concentration - - Weight 88 kg (194 lb) 12/18/2024 7:59 AM EDT Height 162.6 cm (5' 4 ) 02/12/2024 8:38 AM EDT Body Mass Index 33.3 02/12/2024 8:38 AM EDT Plan of Treatment Upcoming Encounters Date Type Department Care Team (Late st Contact Info) Description 05/27/2025 8:00 AM EDT Office Visit [facility] Rheumatology [address] [place] [address] Kassandra Chan MD [address] [facility], [address] [place] [address] Health Maintenance Due Date Last Done Comments Adult Td,Tdap Booster 1950 DEPRESSION SCREENING 1963 SMOKING Hx and SMOKELESS TOBACCO SCREENING 1964 HEPATITIS C SCREENING 1969 PNEUMOCOCCAL VACCINES (50+ years) (1 of 2 - PCV) 1970 ZOSTER VACCINES (1 of 2) 1970 MAMMOGRAM 1991 COLOGUARD 1996 COLONOSCOPY 1996 COLORECTAL CANCER SCREENING 1996 FIT TEST 1996 FOBT 1996 SIGMOIDOSCOPY 1996 VIRTUAL COLONOSCOPY 1996 RSV VACCINE (1 - Risk 50-74 years 1-dose series) 2001 OSTEOPOROSIS SCREENING INITI AL (ONE-TIME) 2016 INFLUENZA VACCINE (#1) 2025 COVID-19 VACCINE ( - 2024-2 6 season) 2025 07/05/2021, 11/11/2020, 10/13/2020 CREATININE LEVEL 12/18/2025 12/18/2024, 02/12/2024, 08/13/2023 POTASSIUM LEVEL 12/18/2025 12/18/2024, 02/12/2024, 08/13/2023 LIPID PANEL 09/02/2029 09/02/2024 HEPATITIS A VACCINES Aged Out No long er eligible based on patient's age to complete this topic HIB VACCINES Aged Out No longer eligi ble based on patient's age to complete this topic MENINGOCOCCAL VACCINES (ACWY) Aged Out No longer eligible based on patient's age to complete this topic MENINGOCOCCAL VACCINES (B) Aged Out N o longer eligible based on patient's age to complete this topic Medical Devices Not on file Procedures Procedure Name Priority Date/Time Associated Diagnosis Comments COMPREHENSIVE METABOLIC PANEL Routine 12/18/2024 8:40 AM EDT Rheumatoid arthritis involving multiple sites with positive rheumatoid factor from Last 3 Months or Most Recently Relevant to Health Maintenance Results * (ABNORMAL) Comprehensive metabolic panel (12/18/2024 8:40 AM EDT) SODIUM 139 133 - 146 mmol/L [facility] POTASSIUM 4.8 3.3 - 5.1 mmol/L [facility] CHLORIDE 102 96 - 108 mmol/L [facility] CO2 28 21 - 35 mmol/L [facility] BUN 25(H) 6 - 19 mg/dL [facility] CREATININE 1.30 0.5 - 1.5 mg/dL [facility] GLUCOSE 83 70 - 99 mg/dL [facility] ALBUMIN 4.2 3.9 - 4.8 g/dL [facility] TOTAL PROTEIN 7.7 6.5 - 8.0 g/dL [facility] CALCIUM 10.3 8.4 - 10.3 mg/dL [facility] ALKALINE PHOSPHATASE 66 39 - 117 U/L [facility] TOTAL BILIRUBIN 0.3 0.0 - 1.2 mg/dL [facility] AST 26 0 - 37 U/L [facility] ALT 16 0 - 40 U/L [facility] GLOBULIN 3.5 1 - 4.8 g/dL [facility] EGFR 43(L) >59 mL/min/1.7 3m2 [facility] Comment:Estimated glomerular filtration rate calculated using the CKD-EPI refit equation. ANION GAP 14 10 - 20 mmol/L [facility] Blood 12/18/2024 8:40 AM EDT 12/18/2024 8:49 AM EDT us Juan Manuel Lopes MD LAB BLOOD ORDERABLES Final Res ult [facility] [address] [place] [address] from Last 3 Months or Most Recently Relevant to Health Maintenance Insurance [place]PLAC[employer] MEDICARE PART A & B MEDICARE PART A & B MEDICARE REPLACEMENT [place] [id number] MEDICARE PART A & B [place] [id number] MEDICARE PART A & B MEDICARE PART A & B MEDICARE REPLACEMENT MEDICARE PART A & B Care Teams Supervisor [employer] Relationship Specialty Start Date End Date Arash Coelhoe, MD PCP - General Family Medicine 01/30/23 Additional Source Comments The information contained in this document represents components of the legal health record. It is not the complete legal health record.[facility]
--- NOTE | 2025-05-26 08:44 | HO.NEPHOV ---
Vital Signs 05/26/25 08:45 Height 5 ft 4 in Weight 203 lb BMI 34.8 BP 128/78 Blood Pressure Location Lt brachial Position Sitting Pulse 75 Pulse Source Pulse Oximeter Pulse Oximetry (%) 96 Oxygen Delivery Method Room Air Intake Visit Reasons: 5 mo Follow up,confirmed Antiquer Required: No Accompanied by: Self / Same As Patient Allergies morphine Allergy (Verified 05/26/25 08:48) Nausea and Vomiting Medication List - Last Reconciled 05/26/25 by Paul Alston MD cholecalciferol (vitamin D3) 125 mcg PO DAILY evolocumab (Repatha SureClick) mg subcut QMONTH glipizide 5 mg PO DAILY losartan 50 mg PO DAILY spironolactone 50 mg PO DAILY timolol maleate 0.25% drps ophthalmic (eye) upadacitinib ER (Rinvoq) 15 mg PO DAILY HPI Comments Details: Pleasant 71-year-old man with a history of longstanding hypertension and nephrolithiasis along with rheumatoid arthritis was found to have chronic kidney disease. Recent serum creatinine was 1.44 mg/dL. Few months ago creatinine was 1.33. Back in 2021 serum creatinine was 1.21. She has borderline diabetes mellitus. She was initially on metformin and she discontinue this medication. At present she is not on any antihypertensive medications and blood sugar has been within the normal range. History of hypertension overall blood pressure has been well controlled. She is on losartan 50 mg and spironolactone 50 mg. She has been on these medications for last few years and has been no change in the dosage recently. She does not take any NSAIDs or other nephrotoxic agents. Her oral intake has been adequate. History of nephrolithiasis. She has undergone lithotripsy and stent placement. She still has multiple renal stones. RA: On Rinvoq BEing followed by [email or web address] Will check urien studies 12/16/24 74-year-old female presenting for routine evaluation of her chronic kidney disease. With a history of elevated cholesterol, she recently commenced treatment with Repatha injections to manage hyperlipidemia, having tolerated the initial dose without complication. Her rheumatoid arthritis is well-managed symptomatically Her previous issue with nephrolithiasis remains currently stable with no signs of recurrence. During the last check-up, her kidney function was maintained with stable results in both blood and urine tests. 10/22/25 - The patient is a 74-year-old female with CKD. - Rheumatoid arthritis: Stable with leg cramps and trigger finger symptoms affecting sleep. - Nephrolithiasis: History of kidney stones, currently asymptomatic. - Hypertension: Mentioned without further details. - Smiley's cyst: Surgical removal attempted twice, not completed. [facility] Medical History (Updated 05/26/25 @ 08:57 by Paul Alston MD) DONNA (obstructive sleep apnea) History of cervical cancer Primary osteoarthritis involving multiple joints Hirsutism Glaucoma Obesity Osteoporosis Microalbuminuria CKD (chronic kidney disease), stage III Diabetes Rheumatoid arthritis Hypertension Surgical History H/O lithotripsy H/O: hysterectomy S/P left knee arthroscopy Social History Current occupational status: retired Physical Exam Vital Signs: Last Vital Signs Pulse 75 05/26/25 08:45 BP 128/78 05/26/25 08:45 Pulse Ox 96 05/26/25 08:45 Oxygen Delivery Method Room Air 05/26/25 08:45 BMI result Body Mass Index 34.8 Comfortable Neck supple no JVD. Lungs entry equal no rales. Heart S1-S2 heard no gallop or rub. Abdomen soft nontender. Neuro alert awake oriented. No asterixis. Extremities no edema. Results Reviewed Nephrology Results: Hgb, (12.0-16.0) 12.8 g/dl 04/22/24 WBC, (4.8-10.8) 5.4 X10*3/uL 04/22/24 Plt Count, (160-400) 260 X10*3/uL 04/22/24 Sodium, (135-145) 140 mmol/L 05/21/25 Potassium, (3.3-5.1) 4.3 mmol/L 05/21/25 Chloride, (96-108) 103 mmol/L 05/21/25 Carbon Dioxide, (22-29) 31 mmol/L H 05/21/25 BUN, (9-16) 28 mg/dL H 05/21/25 Creatinine, (0.5-1.4) 1.30 mg/dL 05/21/25 Calcium, (8.4-10.2) 10.8 mg/dL H Δ 05/21/25 Phosphorus, (2.7-4.5) 3.6 mg/dL 04/22/24 PTH Intact, (8.7-77.1) 95.5 pg/mL H 04/22/24 Urine Protein, (Neg-Trace) Negative mg/dL 05/21/25 Urine Creatinine 15.33 mg/dL 05/21/25 Renal US 05/04/24 Assessment & Plan Assessment & Plan (1) CKD (chronic kidney disease), stage III: Code(s): N18.30 - Chronic kidney disease, stage 3 unspecified Category: Medical (2) Bilateral nephrolithiasis: Code(s): N20.0 - Calculus of kidney Category: Medical Plan 74-year-old woman with stage IIIB chronic kidney disease. CKD 3 most likely due to underlying hypertensive nephrosclerosis. Other possibilities would include chronic nephrolithiasis.. Obstructive uropathy ruled out based on USG Even though she has had mild diabetes mellitus for the last few years I do not think she has underlying diabetic nephropathy. She has no significant proteinuria. No reason to believe she has any active glomerular nephritis or interstitial disease at this time. Recent Cr 1.3 Probably new baseline Recommendation maintain blood pressure less than 130/80. Avoid hypotension. Continue to avoid nephrotoxic agents including NSAIDs. Low salt diet Encouraged to increase p.o. fluid intake to maintain urine output of at least 2 L. High Ca due to excessive Vit D intake ( on 5000 U daily) Will decrease to 5000 U 2 x week Recheck Ca/PTH IF Ca remains elevated, check SPEP Orders: Orders Basic Metabolic Panel 6 Months E83.52 - Hypercalcemia, N18.30 - Chronic kidney disease, stage 3 unspecified Parathyroid Hormone Intact 6 Months E83.52 - Hypercalcemia, N18.30 - Chronic kidney disease, stage 3 unspecified Vitamin D 25-OH Total 6 Months E83.52 - Hypercalcemia, N18.30 - Chronic kidney disease, stage 3 unspecified Coding Level of Care Code Est Pt Level 4 (90719) Diagnoses CKD (chronic kidney disease), stage III N18.30 Bilateral nephrolithiasis N20.0
[2025-05-26 08:45] VITALS: BP 128/78; PULSE 75; O2SAT 96; BMI 34.8
== END 2025-05-26 09:03 | disposition home or self-care (01) ==
LOC: HO.HKAS 08:25
PROVIDERS: PCP Family Medicine; Visit Provider Internal Medicine Hypertension Specialist
DX: N18.30 Chronic kidney disease, stage 3 unspecified (principal); N20.0 Calculus of kidney
CPT/HCPCS: 99214